=== PATIENT | female | born 1985 | race Two or more races ===

== ENCOUNTER 2024-05-21 18:33 | Inpatient (IN) | payer MEDICAID, SELFPAY ==
[2024-05-21 18:33] VITALS: BMI 32.8
[2024-05-21 18:55] VITALS: BP 130/77; PULSE 96; RESP 18; TEMP 37.4; O2SAT 97
--- NOTE | 2024-05-21 19:03 | PD.EDRME ---
Rapid Medical Screening Exam RME Arrival date/time: 05/21/24 18:33 38 year old female present to ED for c/o of abd pain for 4 days I have greeted and performed a focused initial assessment of this patient. A comprehensive ED assessment and evaluation of the patient, analysis of all test results, and completion of the medical decision making process will be conducted by additional ED providers. Chief Complaint: Abdominal Pain Vital signs: Vital Signs Temperature 99.4 F 05/21/24 18:55 Pulse Rate 96 05/21/24 18:55 Respiratory Rate 18 05/21/24 18:55 Blood Pressure 130/77 05/21/24 18:55 Pulse Oximetry (%) 97 05/21/24 18:55 Oxygen Delivery Method Room Air 05/21/24 18:55
[2024-05-21 19:25] LABS: Basophils % (Auto) 0 % (0-2.5); Eosinophils # (Auto) 0.1 Thou/mm3 (0.0-0.5); Eosinophils % (Auto) 1 % (0-10); Hematocrit 34.3 % (36.0-46.0); Hemoglobin 10.9 g/dL (12.0-16.0); Immature Granulocytes % (Auto) 1 % (0-0); Immature Granulocytes Auto 0.07 Thou/mm3 (0.00-0.00); Lymphocytes # (Auto) 1.7 Thou/mm3 (1.0-4.8); Lymphocytes % (Auto) 13 % (10-50); Mean Corpuscular HGB Conc 31.8 g/dl (31.0-37.0); Mean Corpuscular Hemoglobin 25.4 pg (25.0-35.0); Mean Corpuscular Volume 80 fL (80-100); Monocytes # (Auto) 0.7 Thou/mm3 (0.0-0.8); Monocytes % (Auto) 5 % (0-12); Neutrophils # (Auto) 10.4 Thou/mm3 (1.8-7.7); Neutrophils % (Auto) 80 % (37-80); Nucleated Red Blood Cell % 0 /100 WBC (0); Platelet Count 271 Thou/mm3 (140-440); RDW Standard Deviation 41.5 fL (36.4-46.3); Red Blood Count 4.29 Miln/mm3 (4.00-5.20)
[2024-05-21] MEDS: ONDANSETRON ODT 4 MG TABRAP PO (19:41)
[2024-05-21] MEDS: MG HYD/AL HYD/SIME (Maalox Reg) SUSP 30 ML UDC PO (19:42)
[2024-05-21 19:44] LABS: HCG,Qualitative Serum Negative
[2024-05-21 19:48] LABS: Alanine Aminotransferase 12 U/L (10-49); Albumin, Serum 4.7 gm/dL (3.5-5.0); Albumin/Globulin Ratio 1.3 (1.2-2.2); Alkaline Phosphatase 81 U/L (46-116); Anion Gap 9 (7-16); Aspartate Amino Transferase 11 U/L (0-34); BUN/Creatinine Ratio 13 Ratio (12-20); Bilirubin,Total 1.1 mg/dL (0.3-1.2); Blood Urea Nitrogen 10 mg/dL (9-23); Calcium 9.7 mg/dL (8.3-10.6); Calcium (Corrected) 9.7 mg/dL (8.5-10.1); Carbon Dioxide 26.3 mMol/L (20.0-31.0); Chloride 102 mMol/L (98-107); Creatinine (Component) 0.8 mg/dL (0.6-1.3); Estimated Creatinine Clearance 96.9 mL/min (>60); Globulin 3.7 gm/dL (2.3-3.5); Glucose 101 mg/dL (74-106); Lipase 24 U/L (12-53); Osmolality,Calculated 272 (275-295); Potassium 3.8 mMol/L (3.4-5.1); Sodium 137 mMol/L (136-145); Total Protein 8.4 gm/dL (5.7-8.2); eGFR > 60 See Note
[2024-05-21 20:29] LABS: Collection Type, Urine Voided
[2024-05-21 20:49] LABS: Bilirubin,Urine Negative (Negative); Blood,Urine 2+ (Negative); Clarity,Urine Turbid (Clear/Hazy); Color,Urine Yellow (Lt Yel-Yel); Glucose, Urine Negative (Negative); Ketones,Urine Trace (Negative); Leukocyte Esterase,Urine Positive (Negative); Nitrite,Urine Negative (Negative); Protein,Urine 1+ (Neg - Trace); RBC,Urine 7 /hpf (0-3); Squamous Epithelial Cell,Urine 14 /hpf (0-5); Urobilinogen,Urine Negative mg/dL (0.0-1.0); WBC,Urine 17 /hpf (0-5)
--- NOTE | 2024-05-21 21:21 | XR_ITS ---
Examination: CT abdomen and pelvis without contrast. Coronal 3-D reconstructions. Sagittal 2-D reconstructions. Date and time of exam:May 21, 2024 1008 p.m. Comparison October 09, 2014 INDICATION: Flank pain and abdominal pain and distention this week CTDI: vol (mGy): 10.3 DLP: (mGycm): 591 Technique: Axial images of the abdomen have been obtained, 3 mm slice thickness Intravenous contrast material has not been administered. Low dose protocols were performed. One or more of the following dose reduction techniques were used; automated exposure control, adjustment of the mA and/or KV according to patient size, use of iterative reconstruction technique. Findings: Diffuse fatty infiltration throughout the liver Absent gallbladder Spleen is not enlarged No pancreatic or adrenal mass. Mild bilateral renal parenchymal scar formation No renal or ureteral calculi, no hydronephrosis Aorta normal size Inflammatory change pericecal with tubular structure below and anterior to the cecum on axial image 176 Anteverted uterus No bladder mass IMPRESSION: No renal or ureteral calculi, no hydronephrosis Significant pericecal inflammation with poorly defined tubular structure below and anterior to the cecum, differential would include acute appendicitis with localized rupture Repeating this study with intravenous contrast would be helpful in diagnostic assessment
--- NOTE | 2024-05-21 23:11 | XR_ITS ---
Examination: CT abdomen with intravenous contrast CT pelvis with intravenous contrast 2-D coronal reconstructions 2-D sagittal reconstructions Date and time of exam:May 22, 2024 at [address] abdomen pelvis May 21, 2024 INDICATIONS: Right lower abdominal pain today CTDI: vol (mGy) 9.86 DLP: (mGycm) 551 Technique: Multiple axial sections of the abdomen and pelvis have been obtained. 64 slice high-resolution scanner used. 3 mm axial sections have been obtained, post intravenous injection 60 cc [id number] 2-D sagittal, coronal reconstructions obtained. Low dose protocols were performed. One or more of the following dose reduction techniques were used; automated exposure control, adjustment of the mA and/or KV according to patient size, use of iterative reconstruction technique. Findings: No focal liver or splenic lesions No hydronephrosis Aorta normal size Better defined perforated acute appendicitis with 22 mm abscess below the cecum No pelvic mass IMPRESSION: Perforated acute appendicitis with small periappendiceal abscess
[2024-05-21] MEDS: SODIUM CHLORIDE 0.9% 1000 ML 1,000 ML 999 ML IV (23:45)
[2024-05-21] MEDS: PIPER/TAZO 3.375 GM PREMIX 3.375 GM/50 ML BAG IV (23:47)
[2024-05-21] MEDS: ONDANSETRON INJ 2 MG/ML INJ 2 ML 4 MG IV (23:48)
[2024-05-21] MEDS: MORPHINE SULF INJ 10 MG/ML VIAL 4 MG IVP (23:48)
[2024-05-22] VITALS (10 sets, daily range): BP systolic 102–118; BP diastolic 58–71; PULSE 72–99; RESP 16–96; TEMP 36–37.3; O2SAT 92–98; BMI 35.1
--- NOTE | 2024-05-22 01:50 | PD.EDABDPN ---
ED Abdominal Pain RME/HPI General Chief Complaint: Abdominal Pain Stated complaint: ABD PAIN SINCE LAST WEEK, Time seen by provider: 05/22/24 01:50 Arrival date/time: 05/21/24 18:33 REVIEW OF SYSTEMS: See History of Present Illness - with the exception of those mentioned in the history of present illness, all other systems reviewed and reported as negative GENERAL: In general the patient is awake, interactive, in an emergency department gurney. HEAD/EYES/EARS/NOSE/THROAT: normo-cephalic, atraumatic, mucus membranes are moist, anicteric, palpebral conjunctiva is pink, trachea is midline. CARDIOVASCULAR: regular rate and regular rhythm, no murmurs, heart sounds are not distant, strong pulses in all four extremities that are equal and symmetric bilateral upper and lower extremities, normal capillary refill. CHEST/PULMONARY: normal chest rise and fall, good air movement, clear to auscultation bilaterally, normal inspiratory to expiratory ratios without evidence of respiratory distress. NECK: No midline/Paraspinal tenderness, no step off ROM/Strenght intact No Kernig and bruzinski sign. No trauma ABDOMEN: soft, generalized abdominal tenderness no masses appreciated BACK: normal range of motion without pain. NEUROLOGICAL: cranio-facial features are symmetric, moves all four extremities equally without obvious limitations or weakness. EXTREMITY: no tenderness to palpation over the long bones or large joints of the bilateral upper and lower extremities, no joint swelling, no joint erythema, no signs of trauma, no unilateral leg swelling and no peripheral edema. SKIN: warm, dry, well-perfused, no jaundice, no rash, no telangiectasias or petechia. PSYCH: calm, cooperative, no evidence of psychosis or agitation RME / HPI RME / HPI narrative: 05/21/24 18:33 38 year old female present to ED for c/o of abd pain for 4 days I have greeted and performed a focused initial assessment of this patient. A comprehensive ED assessment and evaluation of the patient, analysis of all test results, and completion of the medical decision making process will be conducted by additional ED providers. Related Data Previous Rx's ?Medication ?Instructions ?Recorded ibuprofen 800 mg tablet 800 mg PO TID PRN fever or pain 08/02/17 #30 tabs Allergies Allergy/AdvReac Type Severity Reaction Status Date / Time No Known Allergies Allergy Verified 05/21/24 18:35 Course Course Course Narrative: DISPOSITION: Emergency Department nursing documentation was reviewed including triage complaint, associated symptoms, administration of medications, response to therapy and vital signs. Given the history, physical exam, and review of laboratory and imaging studies the patient is determined to be unsafe for discharge and is being moved into the hospital for further diagnostic tests, treatments, stabilization, and monitored response to therapy. I communicated the history, physical exam, pertinent laboratory and imaging studies to the inpatient physician. The inpatient physician has access to electronic copies of all emergency department laboratory testing and imaging studies as well as medications ordered and administered. Quality Measures none Orders Category Date Time Status Admit to Inpatient Status Routine Admission 05/22/24 02:20 Active Patient Condition Routine Admission 05/22/24 02:20 Ordered Bedrest NOW Care 05/22/24 02:[address] Screening NOW Care 05/21/24 23:12 Active Flu & Pneumonia Vaccine Screen ONCE Care 05/22/24 02:22 Active IV [Insert IV] STAT Care 05/21/24 23:12 Active NPO NOW Care 05/22/24 02:21 Active Notify provider NEEDED Care 05/22/24 02:20 Active Sequential Compression Device QSHIFT Care 05/22/24 02:22 Active Strict Intake and Output Routine Care 05/22/24 02:21 Ordered Consult to General Surgery Stat Cons 05/22/24 01:52 Ordered Diet NPO (NOW) Diet 05/22/24 02:[address] abdomen pelvis w con Stat Exams 05/21/24 23:[address] abdomen pelvis wo con Stat Exams 05/21/24 21:21 Completed XR chest 2V Stat Exams 05/22/24 02:24 Ordered Blood Culture (Lab) Stat Lab 05/21/24 23:38 Received CBC AM DRAW Lab 05/22/24 05:00 Ordered CBC AM DRAW Lab 05/23/24 05:00 Ordered CBC AM DRAW Lab 05/24/24 05:00 Ordered CBC Stat Lab 05/21/24 19:12 Completed CMP [Comprehensive Metabolic Panel] Stat Lab 05/21/24 19:12 Completed Comprehensive Metabolic Panel AM DRAW Lab 05/22/24 05:00 Ordered Comprehensive Metabolic Panel AM DRAW Lab 05/23/24 05:00 Ordered Comprehensive Metabolic Panel AM DRAW Lab 05/24/24 05:00 Ordered HCG,Qualitative Serum Stat Lab 05/21/24 19:12 Completed Lactic Acid [Lactate (Lactic Acid)] Stat Lab 05/21/24 23:33 Completed Lipase Stat Lab 05/21/24 19:12 Completed Magnesium AM DRAW Lab 05/22/24 05:00 Ordered Magnesium AM DRAW Lab 05/23/24 05:00 Ordered Magnesium AM DRAW Lab 05/24/24 05:00 Ordered Partial Thromboplastin Time Stat Lab 05/22/24 02:23 Ordered Phosphorous AM DRAW Lab 05/23/24 05:00 Ordered Phosphorous AM DRAW Lab 05/24/24 05:00 Ordered Phosphorous AM DRAW Lab 05/25/24 05:00 Ordered Prothrombin Time with INR Stat Lab 05/22/24 02:23 Ordered Thyroid Stimulating Hormone AM DRAW Lab 05/22/24 05:00 Ordered UA [Urinalysis] Stat Lab 05/21/24 20:14 Completed Urine Culture Stat Lab 05/21/24 20:14 Received Acetaminophen Ivpb [Ofirmev Inj] Med 05/22/24 02:26 Ordered 1,000 mg in 100 ml IV Q6H Acetaminophen Ivpb [Ofirmev Inj] Med 05/22/24 02:22 Discontinued 1,000 mg in 100 ml IV Q6HR HYDROmorphone INJ [Dilaudid Inj] Med 05/22/24 01:56 Discontinued 1 mg IVP X1 ONE Morphine Inj Med 05/22/24 02:22 Ordered 2 mg IVP Q3H PRN Morphine Inj Med 05/21/24 23:17 Discontinued 4 mg IVP X1 ONE Ondansetron Inj [Zofran Inj] Med 05/22/24 02:22 Ordered 4 mg IV Q6H PRN Ondansetron Inj [Zofran Inj] Med 05/21/24 23:17 Discontinued 4 mg IV X1 ONE Ondansetron Odt [Zofran Odt] Med 05/21/24 19:02 Discontinued 4 mg PO X1 ONE Pantoprazole Inj [Protonix Inj] Med 05/22/24 09:00 Ordered 40 mg IVP QDAY Piper/Tazo 3.375 gm Premix [Zosyn] Med 05/21/24 23:13 Discontinued 3.375 gm in 50 ml IV X1 Piper/Tazo Inj [Zosyn Inj] 4.5 gm Med 05/22/24 06:00 Ordered Sodium Chloride 0.9% (Pop) [NS 0.9% mini bag] 100 ml IV Q6HR Ringers Lactated 1000 ml [Lactated Ringers] 1,000 ml Med 05/22/24 02:30 Ordered IV 75 mls/hr Sodium Chloride 0.9% 1000 ml [Ns] 1,000 ml Med 05/21/24 23:17 Discontinued IV 999 mls/hr Sodium Chloride 0.9% 1000 ml [Ns] 1,000 ml Med 05/22/24 01:57 Active IV 999 mls/hr mg Hyd/Al Hyd/Lester Susp [Maalox Susp] Med 05/21/24 19:02 Discontinued 30 ml PO X1 ONE Code Status Routine Oth 05/22/24 02:20 Ordered Oxygen Delivery PRN RT 05/22/24 02:21 Active Reevaluation(s) Reevaluation #1: pt is comfortable but request more pain medication. pt agreeable with treatment and plan Vital Signs Vital signs: Vital Signs Temperature 99.4 F 05/21/24 18:55 Pulse Rate 96 05/21/24 18:55 Respiratory Rate 18 05/21/24 18:55 Blood Pressure 130/77 05/21/24 18:55 Pulse Oximetry (%) 97 05/21/24 18:55 Oxygen Delivery Method Room Air 05/21/24 18:55 Abdominal Pain MDM Patient data External records reviewed:: [facility] previous records Clinical information provided by:: patient Social determinants that could affect healthcare access:: none Patient has the following chronic illnesses:: as stated in chart How is presenting disease/condition affected by chronic disease/condition?: uneffected by Evaluation data The following diagnostics were reviewed and interpreted by me:: lab results and radiology exam(s) Lab and/or radiology exams considered but not ordered:: n/a Interpretation Summary: CT wto:?IMPRESSION: No renal or ureteral calculi, no hydronephrosis Significant pericecal inflammation with poorly defined tubular structure below and anterior to the cecum, differential would include acute appendicitis with localized rupture Repeating this study with intravenous contrast would be helpful in diagnostic assessment CT with contrast per radiologist 140 rupture appendicitis cbc: 14k cmp no acute findings urine no infection lactic wnl Medications / Prescriptions Medications or Prescriptions considered but not ordered:: n/a Medication administrations:: Medication Administration History Sodium Chloride (Ns) 1,000 mls @ 999 mls/hr IV .Q1H1M ONE Stop: 05/22/24 02:57 Last Admin: 05/22/24 02:39 Dose: 999 mls/hr Documented By: HAYDEE Lactated Ringer's (Lactated Ringers) 1,000 mls @ 75 mls/hr IV .[id number] [facility] Stop: 06/21/24 02:29 Piperacillin Sod/Tazobactam (Sod 4.5 gm/ Sodium Chloride) 100 mls @ 200 mls/hr IV Q6HR [facility] Stop: 05/29/24 05:59 Acetaminophen (Ofirmev Inj) 1,000 mg in 100 mls @ 250 mls/hr IV Q6H PRN PRN Reason: fever 100.5 or mild pain 1-3 Morphine Sulfate (Morphine Sulf Inj 10 Mg/Ml Vial) 2 mg IVP Q3H PRN PRN Reason: Pain Scale 5-10 (Severe Stop: 05/27/24 02:21 Ondansetron HCl (Ondansetron Inj 2 Mg/Ml Inj 2 Ml) 4 mg IV Q6H PRN; Protocol PRN Reason: NAUSEA OR VOMITING Stop: 06/21/24 02:21 Pantoprazole Sodium (Pantoprazole Inj 40 Mg Vial) 40 mg IVP QDAY [facility] Stop: 06/21/24 08:59 Discontinued Medications Al Hydrox/Mg Hydrox/Simethicone (Mg Hyd/Al Hyd/Lester (Maalox Reg) Susp 30 Ml Udc) 30 ml PO X1 ONE Stop: 05/21/24 19:03 Last Admin: 05/21/24 19:42 Dose: 30 ml Documented By: DEAN Hydromorphone HCl (Hydromorphone Inj 2 Mg/Ml Vial) 1 mg IVP X1 ONE Stop: 05/22/24 01:57 Last Admin: 05/22/24 02:38 Dose: 1 mg Documented By: HAYDEE Piperacillin/Tazobactam/Dextrose (Zosyn) 3.375 gm in 50 mls @ 100 mls/hr IV X1 ONE Stop: 05/21/24 23:42 Last Admin: 05/21/24 23:47 Dose: 100 mls/hr Documented By: SUPA Sodium Chloride (Ns) 1,000 mls @ 999 mls/hr IV .Q1H1M ONE Stop: 05/22/24 00:17 Last Admin: 05/21/24 23:45 Dose: 999 mls/hr Documented By: DEAN Acetaminophen (Ofirmev Inj) 1,000 mg in 100 mls @ 250 mls/hr IV Q6HR PRN PRN Reason: fever 100.5 or mild pain 1-3 Stop: 05/22/24 18:23 Morphine Sulfate (Morphine Sulf Inj 10 Mg/Ml Vial) 4 mg IVP X1 ONE Stop: 05/21/24 23:18 Last Admin: 05/21/24 23:48 Dose: 4 mg Documented By: SUPA Ondansetron HCl (Ondansetron Odt 4 Mg Tabrap) 4 mg PO X1 ONE; Protocol Stop: 05/21/24 19:03 Last Admin: 05/21/24 19:41 Dose: 4 mg Documented By: DEAN Ondansetron HCl (Ondansetron Inj 2 Mg/Ml Inj 2 Ml) 4 mg IV X1 ONE; Protocol Stop: 05/21/24 23:18 Last Admin: 05/21/24 23:48 Dose: 4 mg Documented By: SUPA as stated above Consultations Consultation(s) initiated? (list below): No Consultation #1 (Physician, Specialty, Details): [address] Hughes, will come in for consult. no surgical intervention , admit to hospitalist 152 spoke with hospitalist will accept patient for admission Diagnosis Differential diagnosis abdominal pain: abdominal pain, acute appendicitis, calculus of kidney, constipation, diverticulitis, gastroenteritis, pancreatitis, small bowel obstruction and other (UTI gastritis ) Most likely diagnosis given after review of the tests above:: rupture appendicitis Admission Indicated Admission indicated?: not indicated Admission Request Was there a request for admission?: Yes Admission Attestation Admission request attestation: Discussed case with [] from Hospitalist service regarding admission. Discussed patients ED course, exam findings, labs, and radiology results. The Hospitalist [agrees,declines] to accept the patient for admission. Disposition Plan Disposition Plan: Admit Discharge Plan Plan Patient Disposition: Admit Acute Care w/in Hospital Prescriptions/Referrals Prescriptions/Med Rec: No Action ibuprofen 800 mg tablet 800 mg PO TID PRN (Reason: fever or pain) Qty: 30 0RF Referrals: Sundar Nielson MD [Primary Care Provider] - In 1 week Problem List Clinical Impression: Acute appendicitis with rupture Patient/Caregiver Discharge Instructions Print Language: Greenlandic Stand Alone Forms: [employer] Award Info., Patient Portal Info Letter
--- NOTE | 2024-05-22 01:52 | PRELIM_ITS ---
CT scan of the abdomen and pelvis with intravenous contrast (axial sections with sagittal and coronal reformats) May 22, 2024 0000 hours Clinical History: Abdomen pain, abnormal finding on CT without contrast Comparison: No prior study is available for comparison. Findings: The lung bases are clear. There is perforated acute appendicitis with small leno appendicular abscess, secondary inflammation of the terminal ileum and cecal base. The gallbladder is surgically absent. Hepatomegaly measuring 19.4 cm. The pancreas, spleen, kidneys and adrenals are unremarkable. There are bilateral renal cysts, the largest measuring 1 cm on the right. No evidence of bowel obstruction. There is no mesenteric or retroperitoneal adenopathy. The urinary bladder is unremarkable. There is no free fluid or free air. There is small right ovarian cyst The osseous structures are unremarkable. Impression: Perforated acute appendicitis with small leno appendicular abscess, secondary inflammation of the terminal ileum and cecal base. No definite free air. Other findings as described above. Discussion Details: Results verbally communicated to : Dr. Maddox at 01:45 AM 05/22/2024 Report Electronically Signed By: Tre Dexter 05/22/2024 1:52:03 AM [EST]
--- NOTE | 2024-05-22 02:24 | XR_ITS ---
Examination: PA lateral chest 2 views TECHNIQUE: Upright PA and lateral chest 2 views Exam date and time: May 22, 2024, 0243 hours INDICATIONS: Preop FINDINGS: Poor inspiratory effort Mild elevation right hemidiaphragm No lobar pneumonia The osseous structures are intact IMPRESSION: Poor inspiratory effort shows x-ray
--- NOTE | 2024-05-22 02:27 | PD.RESHP ---
Documentation for date of: 05/22/24 HPI History of Present Illness History of present illness: HPI: A 38-year-old female patient and known case of any medical condition presented to the ED due to abdominal pain that started 4 days ago. Patient reported that on Tuesday last week she started to feel acute abdominal pain located at the umbilical and the right side of the abdomen. Associated with nausea and ordering discoloration of her urine. Patient reported that she used multiple times ibuprofen to alleviate her symptoms. She mentioned that she contacted her provider in which he recommended to add Pepto-Bismol to the ibuprofen. Her pain subsided 1 day before presentation. However, today patient pain came back again however it was worse. She mentions that the pain is colicky in nature associated with warm sensation and chills. Last bowel movement was 1 day ago. Patient denied any nausea, diarrhea, constipation, urine tract symptoms. Patient denied any vaginal discharge. Home medications: Ibuprofen as needed for pain. ED course: At the ED patient was found to be septic with heart rate of 96, body temperature of 99.4, WBC was 12.5, hemoglobin 9.9, CMP was within normal limits, beta-hCG was negative, lactic acid was within normal limits. Urinalysis was significant for RBCs of 7, WBC 17, squamous cell of 14 most likely contaminated urine sample. CT scan of the abdomen and pelvis showed perforated acute appendicitis with small leno appendicular abscess, secondary inflammation of the terminal ileum and cecal base. No definite free air. Patient was given acetaminophen, Zosyn, Zofran, morphine. General surgeon Dr. Saini was consulted by the ED recommended to admit the patient for further management PMH: No previous past medical condition PSX: Cholecystectomy with no complications PFX: No similar condition among family member Social hx: Alcohol: Denied Tobacco: Denied Illicit drugs: Denied Allergies: No known allergy Review of Systems Review of Systems Systems Reviewed: All systems reviewed, normal except as documented Exam Vital Signs Temp Pulse Resp BP Pulse Ox O2 Del Method 99.4 F 96 18 130/77 97 Room Air 05/21/24 18:55 05/21/24 18:55 05/21/24 18:55 05/21/24 18:55 05/21/24 18:55 05/21/24 18:55 Narrative Exam GEN: AOx3, able to speak full sentences HEENT: NC/AC, PERRLA, oral mucosa moist, neck supple CVS: RRR, S1-S2 present, no murmurs appreciated RESP: CTAB GI: Guarding,non distended, generalized abdominal tender, NBS MSK: able to move all 4 limbs, no lower extremity edema SKIN: warm and dry PROFESSOR OF COUNSELING: CN II-XII and Sensation grossly intact. Results: Labs 05/22/24 03:04 05/22/24 03:04 Labs: Short CBC 05/21/24 Range/Units 19:12 WBC 13.0 H (3.6-11.0) Thou/mm3 Hgb 10.9 L (12.0-16.0) g/dL Hct 34.3 L (36.0-46.0) % Plt Count 271 (140-440) Thou/mm3 BMP 05/21/24 19:12 Sodium 137 Potassium 3.8 Chloride 102 Carbon Dioxide 26.3 BUN 10 Creatinine 0.8 Glucose 101 Calcium 9.7 Liver Function 05/21/24 Range/Units 19:12 Total Bilirubin 1.1 (0.3-1.2) mg/dL AST 11 (0-34) U/L ALT 12 (10-49) U/L Alkaline Phosphatase 81 (46-116) U/L Albumin 4.7 (3.5-5.0) gm/dL Urine 05/21/24 Range/Units 20:14 Urine Color Yellow (Lt Yel-Yel) Urine Clarity Turbid A (Clear/Hazy) Urine pH 6.0 (5.0-7.0) Ur Specific [place] 1.030 (1.001-1.035) Urine Protein 1+ A (Neg - Trace) Urine Glucose (UA) Negative (Negative) Quality Measures Quality Measures none Medications Home Medications and Allergies Allergies Allergy/AdvReac Type Severity Reaction Status Date / Time No Known Allergies Allergy Verified 05/21/24 18:35 Visit Medications Sodium Chloride (Ns) 1,000 mls @ 999 mls/hr IV .Q1H1M ONE Stop: 05/22/24 02:57 Lactated Ringer's (Lactated Ringers) 1,000 mls @ 75 mls/hr IV .[id number] YUSEF Stop: 06/21/24 02:29 Piperacillin Sod/Tazobactam (Sod 4.5 gm/ Sodium Chloride) 100 mls @ 200 mls/hr IV Q6HR YUSEF Stop: 05/29/24 05:59 Acetaminophen (Ofirmev Inj) 1,000 mg in 100 mls @ 250 mls/hr IV Q6H PRN PRN Reason: fever 100.5 or mild pain 1-3 Morphine Sulfate (Morphine Sulf Inj 10 Mg/Ml Vial) 2 mg IVP Q3H PRN PRN Reason: Pain Scale 5-10 (Severe Stop: 05/27/24 02:21 Ondansetron HCl (Ondansetron Inj 2 Mg/Ml Inj 2 Ml) 4 mg IV Q6H PRN; Protocol PRN Reason: NAUSEA OR VOMITING Stop: 06/21/24 02:21 Pantoprazole Sodium (Pantoprazole Inj 40 Mg Vial) 40 mg IVP QDAY [facility] Stop: 06/21/24 08:59 Discontinued Medications Al Hydrox/Mg Hydrox/Simethicone (Mg Hyd/Al Hyd/Lester (Maalox Reg) Susp 30 Ml Udc) 30 ml PO X1 ONE Stop: 05/21/24 19:03 Last Admin: 05/21/24 19:42 Dose: 30 ml Hydromorphone HCl (Hydromorphone Inj 2 Mg/Ml Vial) 1 mg IVP X1 ONE Stop: 05/22/24 01:57 Piperacillin/Tazobactam/Dextrose (Zosyn) 3.375 gm in 50 mls @ 100 mls/hr IV X1 ONE Stop: 05/21/24 23:42 Last Admin: 05/21/24 23:47 Dose: 100 mls/hr Sodium Chloride (Ns) 1,000 mls @ 999 mls/hr IV .Q1H1M ONE Stop: 05/22/24 00:17 Last Admin: 05/21/24 23:45 Dose: 999 mls/hr Acetaminophen (Ofirmev Inj) 1,000 mg in 100 mls @ 250 mls/hr IV Q6HR PRN PRN Reason: fever 100.5 or mild pain 1-3 Stop: 05/22/24 18:23 Morphine Sulfate (Morphine Sulf Inj 10 Mg/Ml Vial) 4 mg IVP X1 ONE Stop: 05/21/24 23:18 Last Admin: 05/21/24 23:48 Dose: 4 mg Ondansetron HCl (Ondansetron Odt 4 Mg Tabrap) 4 mg PO X1 ONE; Protocol Stop: 05/21/24 19:03 Last Admin: 05/21/24 19:41 Dose: 4 mg Ondansetron HCl (Ondansetron Inj 2 Mg/Ml Inj 2 Ml) 4 mg IV X1 ONE; Protocol Stop: 05/21/24 23:18 Last Admin: 05/21/24 23:48 Dose: 4 mg Assessment & Plan Plan Summary:A 38-year-old female patient and known case of any medical condition presented to the ED due to abdominal pain that started 4 days ago. Patient reported that on Tuesday last week she started to feel acute abdominal pain located at the umbilical and the right side of the abdomen. Patient was admitted for management of sepsis secondary to perforated appendicitis #Sepsis secondary to perforated appendicitis #Perforated appendicitis At the ED patient was found to be septic with heart rate of 96, body temperature of 99.4, WBC was 12.5, hemoglobin 9.9, CMP was within normal limits, beta-hCG was negative, lactic acid was within normal limits. Urinalysis was significant for RBCs of 7, WBC 17, squamous cell of 14 most likely contaminated urine sample. CT scan of the abdomen and pelvis showed perforated acute appendicitis with small leno appendicular abscess, secondary inflammation of the terminal ileum and cecal base. No definite free air. Patient was given acetaminophen, Zosyn, Zofran, morphine. General surgeon Dr. Saini was consulted by the ED recommended to admit the patient for further management Plan - Admit patient to Med-surg - Start the patient on zosyn 4.5mg QID - Tylenol IV for fever or mild pain - Keep patient NPO - Start IV RL 75mL/H - General surgon Dr Gutierrez was consulted by ED physcitrista Recgenesis appreciated - Zofran PRN for N/V - Protonix IV qday - F/U on the urine and blood C/S Hospital Maintenance: FEN: NPO DVT ppx: SCD GI ppx:Protonix IV lines:PIV Roy:None Code status:Full Code Dispo:Med-Surg - Patient's plan and care discussed with my attending, Dr. Iker Segura MD Internal Medicine PGY-2 Attending Provider Attestation/Addendum I attest that I was physically present for the evaluation, physical examination, lab and imaging review of the patient with the residents. I discussed the case with the residents and agree with the findings and plans of care as documented above. Patient is a 38 years old female without known past medical history who presented to the ED with complaint of abdominal pain which started 4 days back. Patient initially helped abdominal pain around her umbilicus which moved to the right side of abdome.n patient also has nausea associated with the pain. Patient has been taking ibuprofen with only partial relief. In the ED, she was found to have heart rate of 96, WBC was 12.5, hemoglobin 9.9. Urinalysis showed 17 WBCs but patient denied any urinary symptoms. CT of abdomen/pelvis was done, which shows perforated acute appendicitis with small periappendiceal abscess. General surgery was contacted by ED, who recommended admission for further management. We will admit the patient for management of sepsis secondary to perforated appendicitis. We will start her on broad-spectrum antibiotics with IV Zosyn. Will also start analgesics, antiemetics and IV hydration. We will keep patient n.p.o. for now, general surgery will be following patient with us. Cultures obtained. Mary Dong MD
[2024-05-22] MEDS: HYDROmorphone INJ 2 MG/ML VIAL 1 MG IVP (02:38)
[2024-05-22] MEDS: SODIUM CHLORIDE 0.9% 1000 ML 1,000 ML 999 ML IV (02:39)
[2024-05-22 03:30] LABS: Basophils % (Auto) 0 % (0-2.5); Eosinophils # (Auto) 0.1 Thou/mm3 (0.0-0.5); Eosinophils % (Auto) 0 % (0-10); Hematocrit 31.3 % (36.0-46.0); Hemoglobin 9.9 g/dL (12.0-16.0); Immature Granulocytes % (Auto) 0 % (0-0); Immature Granulocytes Auto 0.04 Thou/mm3 (0.00-0.00); Lymphocytes # (Auto) 1.8 Thou/mm3 (1.0-4.8); Lymphocytes % (Auto) 14 % (10-50); Mean Corpuscular HGB Conc 31.6 g/dl (31.0-37.0); Mean Corpuscular Hemoglobin 25.5 pg (25.0-35.0); Mean Corpuscular Volume 81 fL (80-100); Monocytes # (Auto) 0.7 Thou/mm3 (0.0-0.8); Monocytes % (Auto) 6 % (0-12); Neutrophils # (Auto) 9.9 Thou/mm3 (1.8-7.7); Neutrophils % (Auto) 79 % (37-80); Nucleated Red Blood Cell % 0 /100 WBC (0); Platelet Count 261 Thou/mm3 (140-440); RDW Standard Deviation 42.3 fL (36.4-46.3); Red Blood Count 3.88 Miln/mm3 (4.00-5.20); White Blood Count 12.5 Thou/mm3 (3.6-11.0)
[2024-05-22 03:48] LABS: INR 1.2 (0.9-1.3); Partial Thromboplastin Time 29.6 Seconds (22.0-36.0); Prothrombin Time 12.5 Seconds (9.0-12.2)
[2024-05-22 04:12] LABS: Alanine Aminotransferase 9 U/L (10-49); Albumin/Globulin Ratio 1.3 (1.2-2.2); Alkaline Phosphatase 73 U/L (46-116); Anion Gap 6 (7-16); Aspartate Amino Transferase < 8 U/L (0-34); BUN/Creatinine Ratio 9 Ratio (12-20); Bilirubin,Total 1.2 mg/dL (0.3-1.2); Blood Urea Nitrogen 7 mg/dL (9-23); Calcium 8.6 mg/dL (8.3-10.6); Calcium (Corrected) 8.6 mg/dL (8.5-10.1); Carbon Dioxide 25.1 mMol/L (20.0-31.0); Chloride 106 mMol/L (98-107); Creatinine (Component) 0.8 mg/dL (0.6-1.3); Estimated Creatinine Clearance 96.9 mL/min (>60); Globulin 3.2 gm/dL (2.3-3.5); Glucose 119 mg/dL (74-106); Magnesium 1.9 mg/dL (1.6-2.6); Osmolality,Calculated 272 (275-295); Potassium 3.9 mMol/L (3.4-5.1); Sodium 137 mMol/L (136-145); Thyroid Stimulating Hormone 6.72 uIU/mL (0.55-4.78); Total Protein 7.2 gm/dL (5.7-8.2); eGFR > 60 See Note
[2024-05-22] MEDS: RINGERS LACTATED 1000 ML 1,000 ML 75 ML IV ×2 (05:06→21:38)
[2024-05-22] MEDS: ONDANSETRON INJ 2 MG/ML INJ 2 ML 4 MG IV ×4 (05:37→23:59)
[2024-05-22] MEDS: MORPHINE SULF INJ 10 MG/ML VIAL 2 MG IVP ×4 (05:38→19:56)
[2024-05-22] MEDS: PIPER/TAZO INJ 4.5 GM in SODIUM CHLORIDE 0.9% (POP) 100 ML IV ×4 (05:38→23:38)
[2024-05-22] MEDS: ACETAMINOPHEN IVPB 1,000 MG/100 ML VIAL 250 MG IV (07:47)
[2024-05-22] MEDS: PANTOPRAZOLE INJ 40 MG VIAL IVP (08:49)
[2024-05-22 09:08] LABS: Free T4 (Free Thyroxine) 1.09 ng/dL (0.89-1.76)
[2024-05-22] MEDS: KETOROLAC INJ 30 MG/ML VIAL IVP (10:54)
--- NOTE | 2024-05-22 13:48 | PD.SURCONS ---
HPI Consult details History of present illness: 38F presenting with abdominal pain. Patient reports pain began 3 days before presentation, at the umbilicus and then migrated to the right lower quadrant, associated with nausea and dysuria. Patient took zcfr-efp-opbjkne medications and felt that the pain improved, however the day before presentation it returned and persisted prompting her to seek care in ER. Workup is consistent with perforated appendicitis and patient has remained afebrile, today WBC 12.5 from 13 and she reports pain has somewhat improved although not fully subsided PMH: Denies PSH: Cholecystectomy Meds: Ibuprofen as needed Allergies: NKDA Family history: No known malignancies Review of Systems Review of Systems ROS Unobtainable: All systems reviewed & no additional complaints except as documented Meds Home Medications and Allergies Allergies Allergy/AdvReac Type Severity Reaction Status Date / Time No Known Allergies Allergy Verified 05/21/24 18:35 Exam Vital Signs Temp Pulse Resp BP Pulse Ox O2 Del Method 96.8 F 86 17 107/62 98 Room Air 05/22/24 12:00 05/22/24 12:05/22/24 12:00 05/22/24 12:00 05/22/24 12:00 05/22/24 12:00 Constitutional Constitutional: no acute distress Routine Respiratory Exam Respiratory: Present no resp distress Routine Abdominal Exam Abdominal: Present soft; Absent tenderness (negative Rovsing's sign), distended, rebound, guarding or firm Results Results: Laboratory Laboratory results: results reviewed Results: Imaging CT scan - abdomen: report reviewed and image reviewed Assessment & Plan Plan 38F otherwise healthy presenting with signs and symptoms of perforated appendicitis. As patient is clinically well with no fever, mild leukocytosis and minimal tenderness, I explained that medical management is preferable in her case as the appendix is likely the too walled off to safely remove, and that surgery would confer a risk of injury to nearby structures including the colon and small intestine. All questions were answered and patient is agreeable to this plan CLD Continue antibiotics Pain control as needed Encourage ambulation Will follow-up
--- NOTE | 2024-05-22 14:40 | PC.SS ---
Patient Ana Miller is a 38 year old female admitted for Abdominal Pain. SS met with patient at bedside to review demographic information. Patient reports she lives at home with family, at bedside was her sister, Fifi Abdi who is surrogate decision maker, [phone]. Patient does not utilize any source of DME to assist with ambulation. Patient is able to complete all ADL's independently. [facility] of [facility] PCP is Sundar Nielson. At time of discharge patient will return home, Family will provide transportation. . Next of Kin: Sister, Fifi Abdi Discharge plan: Home
--- NOTE | 2024-05-22 16:17 | PD.RESPRO ---
Documentation for date of: 05/22/24 Subjective Subjective Interval history: Patient is seen and examined at bedside. No acute overnight events. Still complaining of pain in the right lower quadrant and hypogastric region Vitals are stable. On physical examination, tenderness noted in right lower quadrant and hypogastric region Labs showed mild leukocytosis with WBC 12.5, Hb 9.9, TSH 6.72 Dr. Saini was consulted for the possibility of surgery but recommended to start patient on clear liquid diet for now Will continue antibiotics and monitor patient's clinical condition Exam Vital Signs Temp Pulse Resp BP Pulse Ox O2 Del Method 96.8 F 72 18 107/62 98 Room Air 05/22/24 12:00 05/22/24 15:58 05/22/24 15:58 05/22/24 12:00 05/22/24 12:00 05/22/24 12:00 Narrative Exam General: Awake. Resting comfortably on the bed HEENT: Normocephalic, atraumatic, mucous membranes moist. Heart: Regular rate and rhythm, no murmurs. Lungs: Clear to auscultation with no wheezing or crackles. Abdomen: Soft, nondistended, moderate tenderness in the right lower quadrant and hypogastric region, decreased bowel sounds. ?No guarding or rebound tenderness. Neurologic: Alert and oriented x3, no gross neurological deficit, and patient able to move all 4 extremities. Extremities: No edema. Skin: No rash or ecchymoses. Objective Labs 05/23/24 04:37 05/23/24 04:37 Labs: Laboratory Results - last 24 hr 05/21/24 05/21/24 05/21/24 19:12 20:14 23:33 WBC 13.0 H RBC 4.29 Hgb 10.9 L Hct 34.3 L MCV 80 MCH 25.4 MCHC 31.8 RDW Std Deviation 41.5 Plt Count 271 Neut % (Auto) 80 Lymph % (Auto) 13 [place] % (Auto) 5 Eos % (Auto) 1 Baso % (Auto) 0 Neut # (Auto) 10.4 H Lymph # (Auto) 1.7 [place] # (Auto) 0.7 Eos # (Auto) 0.1 Baso # (Auto) 0.0 Immature Gran # (Auto) 0.07 H Absolute Nucleated RBC 0.00 Immature Gran % 1 H Nucleated RBC % 0 PT INR APTT Sodium 137 Potassium 3.8 Chloride 102 Carbon Dioxide 26.3 Anion Gap 9 BUN 10 Creatinine 0.8 Estim Creat Clear Calc 96.9 eGFR > 60 BUN/Creatinine Ratio 13 Glucose 101 Calculated Osmolality 272 L Lactic Acid 1.0 Calcium 9.7 Corrected Calcium 9.7 Magnesium Total Bilirubin 1.1 AST 11 ALT 12 Alkaline Phosphatase 81 Total Protein 8.4 H Albumin 4.7 Globulin 3.7 H Albumin/Globulin Ratio 1.3 Lipase 24 TSH Free T4 HCG, Qual Negative Ur Collection Type Voided Urine Color Yellow Urine Clarity Turbid A Urine pH 6.0 Ur Specific [place] 1.030 Urine Protein 1+ A Urine Glucose (UA) Negative Urine Ketones Trace Urine Blood 2+ A Urine Nitrite Negative Urine Bilirubin Negative Urine Urobilinogen (Auto) Negative Ur Leukocyte Esterase Positive Urine RBC 7 H Urine WBC 17 H Ur Squamous Epith Cells 14 H Urine Bacteria None 05/22/24 03:04 WBC 12.5 H RBC 3.88 L Hgb 9.9 L Hct 31.3 L MCV 81 MCH 25.5 MCHC 31.6 RDW Std Deviation 42.3 Plt Count 261 Neut % (Auto) 79 Lymph % (Auto) 14 [place] % (Auto) 6 Eos % (Auto) 0 Baso % (Auto) 0 Neut # (Auto) 9.9 H Lymph # (Auto) 1.8 [place] # (Auto) 0.7 Eos # (Auto) 0.1 Baso # (Auto) 0.0 Immature Gran # (Auto) 0.04 H Absolute Nucleated RBC 0.00 Immature Gran % 0 Nucleated RBC % 0 PT 12.5 H INR 1.2 APTT 29.6 Sodium 137 Potassium 3.9 Chloride 106 Carbon Dioxide 25.1 Anion Gap 6 L BUN 7 L Creatinine 0.8 Estim Creat Clear Calc 96.9 eGFR > 60 BUN/Creatinine Ratio 9 L Glucose 119 H Calculated Osmolality 272 L Lactic Acid Calcium 8.6 Corrected Calcium 8.6 Magnesium 1.9 Total Bilirubin 1.2 AST < 8 ALT 9 L Alkaline Phosphatase 73 Total Protein 7.2 Albumin 4.0 D Globulin 3.2 Albumin/Globulin Ratio 1.3 Lipase TSH 6.72 H Free T4 1.09 HCG, Qual Ur Collection Type Urine Color Urine Clarity Urine pH Ur Specific [place] Urine Protein Urine Glucose (UA) Urine Ketones Urine Blood Urine Nitrite Urine Bilirubin Urine Urobilinogen (Auto) Ur Leukocyte Esterase Urine RBC Urine WBC Ur Squamous Epith Cells Urine Bacteria Quality Measures Quality Measures none Assessment & Plan Assessment Current Active Medications: Generic Name Dose Route Start Last Admin Trade Name Freq PRN Reason Stop Dose Admin Lactated Ringer's 1,000 mls @ 75 mls/hr 05/22/24 02:30 05/22/24 05:06 Lactated Ringers IV 06/21/24 02:29 75 mls/hr .[id number] YUSEF Administration Piperacillin Sod/Tazobactam 100 mls @ 200 mls/hr 05/22/24 06:00 05/22/24 11:52 Sod 4.5 gm/ Sodium Chloride IV 05/29/24 05:59 200 mls/hr Q6HR YUSEF Administration Acetaminophen 1,000 mg in 100 mls @ 250 mls/hr 05/22/24 02:26 05/22/24 07:47 Ofirmev Inj IV 250 mls/hr Q6H PRN Administration fever 100.5 or mild pain 1-3 Ketorolac Tromethamine 30 mg 05/22/24 10:29 05/22/24 10:54 Ketorolac Inj 30 Mg/Ml Vial IVP 05/27/24 10:26 30 mg Q6HR PRN Administration PAIN 4-6 Lidocaine 1 patch 05/22/24 13:47 Lidocaine 5% 1 Patch TOP 06/21/24 13:46 UD PRN PAIN Protocol Morphine Sulfate 2 mg 05/22/24 10:30 05/22/24 11:52 Morphine Sulf Inj 10 Mg/Ml Vial IVP 05/27/24 02:21 2 mg Q3H PRN Administration Pain Scale 7-10 Ondansetron HCl 4 mg 05/22/24 02:22 05/22/24 11:22 Ondansetron Inj 2 Mg/Ml Inj 2 Ml IV 06/21/24 02:21 4 mg Q6H PRN Administration NAUSEA OR VOMITING Protocol Pantoprazole Sodium 40 mg 05/22/24 09:00 05/22/24 08:49 Pantoprazole Inj 40 Mg Vial IVP 06/21/24 08:59 40 mg QDAY YUSEF Administration Plan A 38-year-old female patient and known case of any medical condition presented to the ED due to abdominal pain that started 4 days ago. Patient reported that on Tuesday last week she started to feel acute abdominal pain located at the umbilical and the right side of the abdomen. Patient was admitted for management of sepsis secondary to perforated appendicitis #Perforated appendicitis Presented to the hospital with complaint of pain in the right lower quadrant since 3 days, no associated fever, nausea, vomitings Vitals are stable at the time of admission. Labs showed mild leukocytosis with WBC 12.5 CT scan of the abdomen and pelvis showed perforated acute appendicitis with small leno appendicular abscess, secondary inflammation of the terminal ileum and cecal base. Patient was given acetaminophen, Zosyn, Zofran, morphine in the ED. General surgeon Dr. Saini was consulted by the ED recommended to admit the patient for further management Plan - Admit patient to Med-surg - Start the patient on zosyn 4.5mg QID - Tylenol IV for fever or mild pain - Started on clear liquid diet - General surgon Dr Gutierrez was consulted and recommended conservative management for now - Zofran PRN for N/V - Protonix IV qday Hospital Maintenance: FEN: Clear liquid diet DVT ppx: SCD GI ppx:Protonix IV lines:PIV Roy:None Code status:Full Code Dispo:Med-Surg Patient plan of care was discussed with the attending physician, Dr. Ma and senior resident Dr. Kathy Gore, PGY1 Attending Provider Attestation/Addendum I reviewed labs, imaging, EKG, home medications and prior available records. Face to face evaluation was performed by me. I have personally examined the patient and discussed assessment and plan with the IM team. I reviewed the resident note and agree with the plan with exceptions as below. Acute appendicitis, perforated Leukocytosis Right lower quadrant abdominal pain Intractable nausea and vomiting Symptomatic management with IV opiates and IV Zofran as needed Trend WBC: Downtrending Consulted general surgery: Recommended no surgical intervention at this moment. Start clear liquid diet
[2024-05-23] VITALS (9 sets, daily range): BP systolic 106–124; BP diastolic 62–83; PULSE 60–84; RESP 16–95; TEMP 36.1–36.5; O2SAT 92–99
[2024-05-23] MEDS: MORPHINE SULF INJ 10 MG/ML VIAL 2 MG IVP ×3 (04:34→08:36)
[2024-05-23 05:24] LABS: Basophils % (Auto) 0 % (0-2.5); Eosinophils # (Auto) 0.2 Thou/mm3 (0.0-0.5); Eosinophils % (Auto) 2 % (0-10); Hematocrit 31.3 % (36.0-46.0); Hemoglobin 9.8 g/dL (12.0-16.0); Immature Granulocytes % (Auto) 0 % (0-0); Immature Granulocytes Auto 0.01 Thou/mm3 (0.00-0.00); Lymphocytes # (Auto) 1.6 Thou/mm3 (1.0-4.8); Lymphocytes % (Auto) 20 % (10-50); Mean Corpuscular HGB Conc 31.3 g/dl (31.0-37.0); Mean Corpuscular Hemoglobin 25.2 pg (25.0-35.0); Mean Corpuscular Volume 81 fL (80-100); Monocytes # (Auto) 0.4 Thou/mm3 (0.0-0.8); Monocytes % (Auto) 5 % (0-12); Neutrophils % (Auto) 73 % (37-80); Nucleated Red Blood Cell % 0 /100 WBC (0); Platelet Count 262 Thou/mm3 (140-440); RDW Standard Deviation 41.5 fL (36.4-46.3); Red Blood Count 3.89 Miln/mm3 (4.00-5.20); White Blood Count 8.1 Thou/mm3 (3.6-11.0)
[2024-05-23] MEDS: PIPER/TAZO INJ 4.5 GM in SODIUM CHLORIDE 0.9% (POP) 100 ML IV ×3 (05:56→17:04)
[2024-05-23 05:57] LABS: Alanine Aminotransferase 7 U/L (10-49); Albumin, Serum 3.6 gm/dL (3.5-5.0); Albumin/Globulin Ratio 1.2 (1.2-2.2); Alkaline Phosphatase 67 U/L (46-116); Anion Gap 6 (7-16); Aspartate Amino Transferase < 10 U/L (0-34); BUN/Creatinine Ratio 10 Ratio (12-20); Blood Urea Nitrogen 8 mg/dL (9-23); Calcium 8.2 mg/dL (8.3-10.6); Calcium (Corrected) 8.5 mg/dL (8.5-10.1); Carbon Dioxide 26.8 mMol/L (20.0-31.0); Chloride 105 mMol/L (98-107); Creatinine (Component) 0.8 mg/dL (0.6-1.3); Estimated Creatinine Clearance 100.5 mL/min (>60); Globulin 2.9 gm/dL (2.3-3.5); Glucose 87 mg/dL (74-106); Osmolality,Calculated 272 (275-295); Phosphorous 2.2 mg/dL (2.4-5.1); Potassium 3.5 mMol/L (3.4-5.1); Sodium 138 mMol/L (136-145); Total Protein 6.5 gm/dL (5.7-8.2); eGFR > 60 See Note
[2024-05-23] MEDS: ONDANSETRON INJ 2 MG/ML INJ 2 ML 4 MG IV ×2 (08:35→19:12)
[2024-05-23] MEDS: PANTOPRAZOLE INJ 40 MG VIAL IVP (08:36)
[2024-05-23] MEDS: NAPH,KPH MBDB 1 PACKET (1.5 GM) 2 PACKET PO (08:53)
--- NOTE | 2024-05-23 09:00 | PC.SS ---
SS follow up note; Surgery is on board, on IV ABX. Advancing Diet. Once patient is medically cleared, she will return back home.
--- NOTE | 2024-05-23 09:25 | PD.SURPROG ---
Documentation for date of: 05/23/24 Subjective Subjective Brief History: 38F presenting with abdominal pain. Patient reports pain began 3 days before presentation, at the umbilicus and then migrated to the right lower quadrant, associated with nausea and dysuria. Patient took nvpq-cgl-jfrgvad medications and felt that the pain improved, however the day before presentation it returned and persisted prompting her to seek care in ER. Workup is consistent with perforated appendicitis and patient has remained afebrile, today WBC 12.5 from 13 and she reports pain has somewhat improved although not fully subsided PMH: Denies PSH: Cholecystectomy Meds: Ibuprofen as needed Allergies: NKDA Family history: No known malignancies Narrative: Stable abdominal pain, no nausea, remaining afebrile with normal WBC, tolerating clear liquids. Patient has not yet had a BM but states that she does not usually have BMs daily Exam Vital Signs Temp Pulse Resp BP Pulse Ox O2 Del Method 97.0 F 77 18 124/71 98 Room Air 05/23/24 04:00 05/23/24 04:00 05/23/24 04:00 05/23/24 04:00 05/23/24 04:00 05/23/24 04:00 Constitutional Constitutional: no acute distress Routine Respiratory Exam Respiratory: Present no resp distress Routine Abdominal Exam Abdominal: Present soft and tenderness (Mild right lower quadrant tenderness); Absent distended, rebound or guarding Results Results: Laboratory Laboratory results: results reviewed Results: Imaging CT scan - abdomen: report reviewed and image reviewed Assessment & Plan Plan 38F otherwise healthy presenting with signs and symptoms of perforated appendicitis. As patient is clinically well with no fever, mild leukocytosis and minimal tenderness, I explained that medical management is preferable in her case as the appendix is likely the too walled off to safely remove, and that surgery would confer a risk of injury to nearby structures including the colon and small intestine. All questions were answered and patient is agreeable to this plan Advance to regular/bland diet Transition to PO pain meds
[2024-05-23] MEDS: oxyCODONE/APAP 5/325 TABLET 1 TAB PO (11:58)
--- NOTE | 2024-05-23 14:29 | ESPR_ITS ---
<Statement entered by Pato Herrera MD - 05/24/24 09:00> Senior Resident Attestation: I supervised/discussed management plan with internet sales director physician Dr. Gore, and was involved in the care of this patient. I personally saw and examined the patient and discussed the assessment and plan with the entire medicine team, including my attending. I agree with the assessment and plan as documented. Patient's care was discussed with attending physician, Dr. Ma. Pato Herrera MD PGY-2. Documentation for date of: 05/23/24 Subjective Subjective Interval history: Patient is seen and examined at bedside. Overnight, patient received multiple doses of morphine for pain and patient reported that morphine is not helping her much and needed a change of medication. Stated that she is still having abdominal pain but decreased from the time of admission Vitals are stable. Patient is tolerating liquid diet well Labs showed WBC 8.1, Hb 9.8, BUN 8, creatinine 0.8 Dr. Hughes saw the patient today and recommended to start her on solid diet, continue antibiotics, changed to morphine to oxycodone If patient is able to tolerate solid diet, planning to discharge tomorrow on oral antibiotics Exam Vital Signs Temp Pulse Resp BP Pulse Ox O2 Del Method 97.2 F 80 16 108/66 92 L Room Air 05/23/24 11:00 05/23/24 11:00 05/23/24 11:00 05/23/24 11:00 05/23/24 11:00 05/23/24 11:00 Narrative Exam General: Awake. Resting comfortably on the bed HEENT: Normocephalic, atraumatic, mucous membranes moist. Heart: Regular rate and rhythm, no murmurs. Lungs: Clear to auscultation with no wheezing or crackles. Abdomen: Soft, nondistended, moderate tenderness in the right lower quadrant and hypogastric region. No guarding or rebound tenderness. Neurologic: Alert and oriented x3, no gross neurological deficit, and patient able to move all 4 extremities. Extremities: No edema. Skin: No rash or ecchymoses. Objective Labs 05/23/24 04:37 05/23/24 04:37 Labs: Laboratory Results - last 24 hr 05/23/24 04:37 WBC 8.1 RBC 3.89 L Hgb 9.8 L Hct 31.3 L MCV 81 MCH 25.2 MCHC 31.3 RDW Std Deviation 41.5 Plt Count 262 Neut % (Auto) 73 Lymph % (Auto) 20 [place] % (Auto) 5 Eos % (Auto) 2 Baso % (Auto) 0 Neut # (Auto) 6.0 Lymph # (Auto) 1.6 [place] # (Auto) 0.4 Eos # (Auto) 0.2 Baso # (Auto) 0.0 Immature Gran # (Auto) 0.01 H Absolute Nucleated RBC 0.00 Immature Gran % 0 Nucleated RBC % 0 Sodium 138 Potassium 3.5 Chloride 105 Carbon Dioxide 26.8 Anion Gap 6 L BUN 8 L Creatinine 0.8 Estim Creat Clear Calc 100.5 eGFR > 60 BUN/Creatinine Ratio 10 L Glucose 87 Calculated Osmolality 272 L Calcium 8.2 L Corrected Calcium 8.5 Phosphorus 2.2 L Magnesium 2.0 Total Bilirubin 1.0 AST < 10 ALT 7 L Alkaline Phosphatase 67 Total Protein 6.5 Albumin 3.6 Globulin 2.9 Albumin/Globulin Ratio 1.2 Quality Measures Quality Measures none Assessment & Plan Assessment Current Active Medications: Generic Name Dose Route Start Last Admin Trade Name Freq PRN Reason Stop Dose Admin Acetaminophen 650 mg 05/23/24 09:24 Acetaminophen 325 Mg Tablet PO 06/22/24 09:23 Q6HR PRN PAIN SCALE 1-3 (mild Docusate Sodium 100 mg 05/23/24 09:27 Docusate Sod 100 Mg Capsule PO 06/22/24 09:26 QDAY PRN CONSTIPATION Protocol Piperacillin Sod/Tazobactam 100 mls @ 200 mls/hr 05/22/24 06:00 05/23/24 11:57 Sod 4.5 gm/ Sodium Chloride IV 05/29/24 05:59 200 mls/hr Q6HR YUSEF Administration Lidocaine 1 patch 05/22/24 13:47 Lidocaine 5% 1 Patch TOP 06/21/24 13:46 UD PRN PAIN Protocol Ondansetron HCl 4 mg 05/22/24 02:22 05/23/24 08:35 Ondansetron Inj 2 Mg/Ml Inj 2 Ml IV 06/21/24 02:21 4 mg Q6H PRN Administration NAUSEA OR VOMITING Protocol Oxycodone/Acetaminophen 1 tab 05/23/24 09:24 05/23/24 11:58 Oxycodone/Apap 5/325 Tablet PO 05/28/24 09:23 1 tab Q4H PRN Administration PAIN SCALE 7-10 (Severe Pantoprazole Sodium 40 mg 05/22/24 09:00 05/23/24 08:36 Pantoprazole Inj 40 Mg Vial IVP 06/21/24 08:59 40 mg QDAY YUSEF Administration Plan A 38-year-old female patient and known case of any medical condition presented to the ED due to abdominal pain that started 4 days ago. Patient reported that on Tuesday last week she started to feel acute abdominal pain located at the umbilical and the right side of the abdomen. Patient was admitted for management of sepsis secondary to perforated appendicitis #Perforated appendicitis Presented to the hospital with complaint of pain in the right lower quadrant since 3 days, no associated fever, nausea, vomitings Vitals are stable at the time of admission. Labs showed mild leukocytosis with WBC 12.5 CT scan of the abdomen and pelvis showed perforated acute appendicitis with small leno appendicular abscess, secondary inflammation of the terminal ileum and cecal base. Patient was given acetaminophen, Zosyn, Zofran, morphine in the ED. General surgeon Dr. Saini was consulted by the ED recommended to admit the patient for further management Plan - Admit patient to Med-surg - Start the patient on zosyn 4.5mg QID - Tylenol IV for fever or mild pain and oxycodone as needed - Started on solid regular diet - General surgon Dr Gutierrez was consulted and recommended conservative management for now - Zofran PRN for N/V - Protonix IV qday Hospital Maintenance: FEN: Regular diet DVT ppx: SCD GI ppx:Protonix IV lines:PIV Roy:None Code status:Full Code Dispo:Med-Surg Patient plan of care was discussed with the attending physician, Dr. Ma and senior resident Dr. Kathy Gore, PGY1 Attending Provider Attestation/Addendum I reviewed labs, imaging, EKG, home medications and prior available records. Face to face evaluation was performed by me. I have personally examined the patient and discussed assessment and plan with the IM team. I reviewed the resident note and agree with the plan with exceptions as below. Acute appendicitis, perforated Leukocytosis Right lower quadrant abdominal pain Intractable nausea and vomiting Symptomatic management of pain and nausea/vomiting. Transition to oral opiates Trend WBC: Downtrending Consulted general surgery: Recommended no surgical intervention at this moment. Started clear liquid diet. Advanced the diet to solid food Discharge on 05/24 in case of further improvement of symptoms and tolerance of advanced diet
[2024-05-23] MEDS: LIDOCAINE 5% 1 PATCH TOP (15:09)
[2024-05-23] MEDS: oxyCODONE HCL 5 MG IR TAB 10 MG PO (16:00)
--- NOTE | 2024-05-23 19:31 | PC.NURSE ---
After report pt c/o nausea stated that nausea came after pain that she has been in pain for awhile oxycontin PO did not help only for approx one hour. Provided pt with Zofran per order. Contacted Dr. Hughes new orders for scheduled Tylenol, Morphine 4 q4 breakthrough pain and mylicon q6 as needed. Will infrom pt and await for pharmacy verification
[2024-05-23] MEDS: MORPHINE SULF INJ 10 MG/ML VIAL 4 MG IVP (19:44)
[2024-05-23] MEDS: ACETAMINOPHEN IVPB 1,000 MG/100 ML VIAL 250 MG IV (19:49)
[2024-05-23] MEDS: SIMETHICONE 80 MG CHEW PO (19:51)
[2024-05-23] MEDS: DOCUSATE SOD 100 MG CAPSULE PO (19:51)
[2024-05-24] VITALS (8 sets, daily range): BP systolic 109–137; BP diastolic 62–84; PULSE 56–83; RESP 16–97; TEMP 36.1–36.8; O2SAT 94–97
[2024-05-24] MEDS: PIPER/TAZO INJ 4.5 GM in SODIUM CHLORIDE 0.9% (POP) 100 ML IV ×5 (00:01→23:02)
[2024-05-24] MEDS: ACETAMINOPHEN IVPB 1,000 MG/100 ML VIAL 250 MG IV ×4 (00:44→22:30)
[2024-05-24] MEDS: ONDANSETRON INJ 2 MG/ML INJ 2 ML 4 MG IV ×2 (00:54→05:09)
[2024-05-24] MEDS: MORPHINE SULF INJ 10 MG/ML VIAL 4 MG IVP (05:09)
[2024-05-24 05:51] LABS: Basophils % (Auto) 0 % (0-2.5); Eosinophils % (Auto) 1 % (0-10); Hematocrit 31.6 % (36.0-46.0); Hemoglobin 9.9 g/dL (12.0-16.0); Immature Granulocytes % (Auto) 0 % (0-0); Immature Granulocytes Auto 0.02 Thou/mm3 (0.00-0.00); Lymphocytes # (Auto) 0.9 Thou/mm3 (1.0-4.8); Lymphocytes % (Auto) 18 % (10-50); Mean Corpuscular HGB Conc 31.3 g/dl (31.0-37.0); Mean Corpuscular Hemoglobin 25.1 pg (25.0-35.0); Mean Corpuscular Volume 80 fL (80-100); Monocytes # (Auto) 0.2 Thou/mm3 (0.0-0.8); Monocytes % (Auto) 5 % (0-12); Neutrophils % (Auto) 77 % (37-80); Nucleated Red Blood Cell % 0 /100 WBC (0); Platelet Count 269 Thou/mm3 (140-440); Red Blood Count 3.94 Miln/mm3 (4.00-5.20); White Blood Count 5.2 Thou/mm3 (3.6-11.0)
[2024-05-24 06:32] LABS: Anion Gap 7 (7-16); BUN/Creatinine Ratio 13 Ratio (12-20); Blood Urea Nitrogen 10 mg/dL (9-23); Calcium 8.7 mg/dL (8.3-10.6); Carbon Dioxide 28.4 mMol/L (20.0-31.0); Chloride 103 mMol/L (98-107); Creatinine (Component) 0.8 mg/dL (0.6-1.3); Estimated Creatinine Clearance 100.5 mL/min (>60); Glucose 113 mg/dL (74-106); Magnesium 2.1 mg/dL (1.6-2.6); Osmolality,Calculated 275 (275-295); Phosphorous 2.4 mg/dL (2.4-5.1); Sodium 138 mMol/L (136-145); eGFR > 60 See Note
--- NOTE | 2024-05-24 08:48 | PC.SS ---
Addendum entered by Rachael Pollard 05/24/24 15:39: SS rounding note: Staying 1 more day due to pain and nausea. Original Note: SS rounding note: May discharge today, 05/24/24, if Dr. Saini clears patient.
[2024-05-24] MEDS: PROMETHAZINE INJ 12.5 MG in SODIUM CHLORIDE 0.9% 50 ML 2.5 MG IV (10:09)
--- NOTE | 2024-05-24 13:57 | XR_ITS ---
Examination: CT abdomen with intravenous contrast CT pelvis with intravenous contrast 2-D coronal reconstructions 2-D sagittal reconstructions Date and time of exam:May 25, 2024 0511 hours Comparison May 22, 2024 INDICATIONS: Right lower abdominal pain beginning [address] abdomen pelvis May 22, 2024 perforated acute appendicitis with small periappendiceal abscess CTDI: vol (mGy) 12.1 DLP: (mGycm) 677 Technique: Multiple axial sections of the abdomen and pelvis have been obtained. 64 slice high-resolution scanner used. 3 mm axial sections have been obtained, post intravenous injection 60 cc [id number] 2-D sagittal, coronal reconstructions obtained. Low dose protocols were performed. One or more of the following dose reduction techniques were used; automated exposure control, adjustment of the mA and/or KV according to patient size, use of iterative reconstruction technique. Findings: No focal liver or splenic lesions Absent gallbladder No pancreatic mass No hydronephrosis Aorta normal size Again noted small pericecal abscess, 31 x 32 mm No pelvic mass IMPRESSION: Findings remain consistent with perforated acute appendicitis with small pericecal abscess This abscess is too small for successful percutaneous catheter placement at this time, suggest follow-up CT examination in 2-3 days
--- NOTE | 2024-05-24 14:00 | ESPR_ITS ---
Documentation for date of: 05/24/24 Subjective Subjective Brief History: 38F presenting with abdominal pain. Patient reports pain began 3 days before presentation, at the umbilicus and then migrated to the right lower quadrant, associated with nausea and dysuria. Patient took [id number] medications and felt that the pain improved, however the day before presentation it returned and persisted prompting her to seek care in ER. Workup is consistent with perforated appendicitis and patient has remained afebrile, today WBC 12.5 from 13 and she reports pain has somewhat improved although not fully subsided PMH: Denies PSH: Cholecystectomy Meds: Ibuprofen as needed Allergies: NKDA Family history: No known malignancies Narrative: Pt was having more pain yesterday after attempting transition to PO meds, she feels it is more controlled now with PRN morphine but she also developed nausea/vomiting today. She remains afebrile with normal WBC, is passing gas but has not had a BM as of yet this admission Exam Vital Signs Temp Pulse Resp BP Pulse Ox O2 Del Method 97.1 F 78 16 109/62 95 Room Air 05/24/24 11:19 05/24/24 11:19 05/24/24 11:19 05/24/24 11:19 05/24/24 11:19 05/24/24 11:19 Constitutional Constitutional: no acute distress Routine Respiratory Exam Respiratory: Present no resp distress Routine Abdominal Exam Abdominal: Present soft and tenderness (mild tenderness RLQ); Absent distended, rebound or guarding Results Results: Laboratory Laboratory results: results reviewed Assessment & Plan Plan 38F otherwise healthy presenting with signs and symptoms of perforated appe ndicitis. On admission pt was clinically well with pain controlled, no fever and normal WBC, so given the imaging findings I explained that medical management was preferable given the risk that the appendix was too walled off to be safely removed. Pt has remained hemodynamically normal with WBC normal, however continues to have moderate pain and developed nausea/vomiting today CT AP to eval for abscess Pain control prn Continue abx
--- NOTE | 2024-05-24 15:09 | ESPR_ITS ---
<Statement entered by Pato Herrera MD - 05/25/24 09:10> Senior Resident Attestation: I supervised/discussed management plan with qa internship physician Dr. Gore, and was involved in the care of this patient. I personally saw and examined the patient and discussed the assessment and plan with the entire medicine team, including my attending. I agree with the assessment and plan as documented. Patient's care was discussed with attending physician, Dr. Garcia. Pato Herrera MD PGY-2. Documentation for date of: 05/24/24 Subjective Subjective Interval history: Patient is seen and examined at bedside. Overnight patient complained of severe nausea, vomitings and received multiple doses of pain medication, including morphine 4 Mg and oxycodone Patient still complaining of nausea, vomiting in the morning. Also complaining of pain in the right lower quadrant which is almost as worse as at the time of admission Vitals are stable. Lab's are within normal limits except for mild anemia 9.9 Dr. Saini recommended repeat abdomen/pelvis CT if the same times continues As patient is not able to tolerate solid food, switch to liquid diet Exam Vital Signs Temp Pulse Resp BP Pulse Ox O2 Del Method 97.1 F 78 16 109/62 95 Room Air 05/24/24 11:19 05/24/24 11:19 05/24/24 11:19 05/24/24 11:19 05/24/24 11:19 05/24/24 11:19 Narrative Exam General: Awake. Resting comfortably on the bed HEENT: Normocephalic, atraumatic, mucous membranes moist. Heart: Regular rate and rhythm, no murmurs. Lungs: Clear to auscultation with no wheezing or crackles. Abdomen: Soft, nondistended, moderate tenderness in the right lower quadrant and hypogastric region. No guarding or rebound tenderness. Neurologic: Alert and oriented x3, no gross neurological deficit, and patient able to move all 4 extremities. Extremities: No edema. Skin: No rash or ecchymoses. Objective Labs 05/25/24 04:45 05/25/24 04:45 Labs: Laboratory Results - last 24 hr 05/24/24 04:48 WBC 5.2 RBC 3.94 L Hgb 9.9 L Hct 31.6 L MCV 80 MCH 25.1 MCHC 31.3 RDW Std Deviation 41.0 Plt Count 269 Neut % (Auto) 77 Lymph % (Auto) 18 [place] % (Auto) 5 Eos % (Auto) 1 Baso % (Auto) 0 Neut # (Auto) 4.0 Lymph # (Auto) 0.9 L [place] # (Auto) 0.2 Eos # (Auto) 0.0 Baso # (Auto) 0.0 Immature Gran # (Auto) 0.02 H Absolute Nucleated RBC 0.00 Immature Gran % 0 Nucleated RBC % 0 Sodium 138 Potassium 4.0 D Chloride 103 Carbon Dioxide 28.4 Anion Gap 7 BUN 10 Creatinine 0.8 Estim Creat Clear Calc 100.5 eGFR > 60 BUN/Creatinine Ratio 13 Glucose 113 H Calculated Osmolality 275 Calcium 8.7 Phosphorus 2.4 Magnesium 2.1 Quality Measures Quality Measures none Assessment & Plan Assessment Current Active Medications: Generic Name Dose Route Start Last Admin Trade Name Freq PRN Reason Stop Dose Admin Docusate Sodium 100 mg 05/23/24 09:27 05/23/24 19:51 Docusate Sod 100 Mg Capsule PO 06/22/24 09:26 100 mg QDAY PRN Administration CONSTIPATION Protocol Hydromorphone HCl 0.5 mg 05/24/24 09:31 Hydromorphone Inj 2 Mg/Ml Vial IVP 05/29/24 09:30 Q4HR PRN Pain 7-10 Protocol Piperacillin Sod/Tazobactam 100 mls @ 200 mls/hr 05/22/24 06:00 05/24/24 14:13 Sod 4.5 gm/ Sodium Chloride IV 05/29/24 05:59 200 mls/hr Q6HR YUSEF Administration Promethazine HCl 12.5 mg/ 50.5 mls @ 2.5 mls/min 05/24/24 09:30 05/24/24 10:09 Sodium Chloride IV 06/23/24 09:29 2.5 mls/min Q6HR PRN Administration NAUSEA OR VOMITING Protocol Lidocaine 1 patch 05/22/24 13:47 05/23/24 15:09 Lidocaine 5% 1 Patch TOP 06/21/24 13:46 1 patch UD PRN Administration PAIN Protocol Ondansetron HCl 4 mg 05/22/24 02:22 05/24/24 05:09 Ondansetron Inj 2 Mg/Ml Inj 2 Ml IV 06/21/24 02:21 4 mg Q6H PRN Administration NAUSEA OR VOMITING Protocol Oxycodone HCl 10 mg 05/23/24 15:46 05/23/24 16:00 Oxycodone Hcl 5 Mg Ir Tab PO 05/28/24 15:45 10 mg Q4HR PRN Administration PAIN SCALE 7-10 (Severe Simethicone 80 mg 05/23/24 19:24 05/23/24 19:51 Simethicone 80 Mg Chew PO 06/22/24 19:23 80 mg QID PRN Administration GAS Plan A 38-year-old female patient and known case of any medical condition presented to the ED due to abdominal pain that started 4 days ago. Patient reported that on Tuesday last week she started to feel acute abdominal pain located at the umbilical and the right side of the abdomen. Patient was admitted for management of sepsis secondary to perforated appendicitis #Perforated appendicitis Presented to the hospital with complaint of pain in the right lower quadrant since 3 days, no associated fever, nausea, vomitings Vitals are stable at the time of admission. Labs showed mild leukocytosis with WBC 12.5 CT scan of the abdomen and pelvis showed perforated acute appendicitis with small leno appendicular abscess, secondary inflammation of the terminal ileum and cecal base. Patient was given acetaminophen, Zosyn, Zofran, morphine in the ED. General surgeon Dr. Saini was consulted by the ED recommended to admit the patient for further management Plan - Admit patient to Med-surg - Start the patient on zosyn 4.5mg QID - Tylenol IV for fever or mild pain and oxycodone, Dilaudid as needed - Will continue liquid diet for now as patient is not able to tolerate a solid feeds - General surgon Dr Gutierrez was consulted and recommended conservative management for now - Started on promethazine as patient is still having nausea and vomitings, likely secondary to morphine use/ - Protonix IV qday Hospital Maintenance: FEN: Liquid diet DVT ppx: SCD GI ppx:Protonix IV lines:PIV Roy:None Code status:Full Code Dispo:Med-Surg Patient plan of care was discussed with the attending physician, Dr. Garcia and senior resident Dr. Kathy Gore, PGY1 Attending Provider Attestation/Addendum Face to face evaluation was performed by me. I have personally seen and examined the patient. I discussed the assessment and plan with the entire medicine team. I reviewed available medical records, imaging studies, laboratory results. I agree with the above subjective data, objective findings, assessment and plan except as corrected by me or noted below Acute appendicitis Ruptured appendix Abdominal pain due to above Nausea and vomiting due to above - Continue iv zosyn add prn compazine, monitor clinical course po diet no Surgical iterentin planned for now
[2024-05-24] MEDS: DOCUSATE SOD 100 MG CAPSULE PO (20:10)
[2024-05-25] VITALS: BP 127/78; PULSE 77; RESP 18; TEMP 36.6; O2SAT 96
[2024-05-25] MEDS: PROMETHAZINE INJ 12.5 MG in SODIUM CHLORIDE 0.9% 50 ML 2.5 MG IV (00:31)
[2024-05-25 04:00] VITALS: BP 120/76; PULSE 75; RESP 18; TEMP 36.3; O2SAT 96
[2024-05-25] MEDS: ONDANSETRON INJ 2 MG/ML INJ 2 ML 4 MG IV (04:48)
--- NOTE | 2024-05-25 04:55 | PC.NURSE ---
Pt taken to CT via transport with Valentin CHRISTINA
[2024-05-25 05:30] LABS: Basophils % (Auto) 0 % (0-2.5); Eosinophils # (Auto) 0.1 Thou/mm3 (0.0-0.5); Eosinophils % (Auto) 2 % (0-10); Hematocrit 32.3 % (36.0-46.0); Hemoglobin 10.1 g/dL (12.0-16.0); Immature Granulocytes % (Auto) 0 % (0-0); Immature Granulocytes Auto 0.02 Thou/mm3 (0.00-0.00); Lymphocytes # (Auto) 1.3 Thou/mm3 (1.0-4.8); Lymphocytes % (Auto) 26 % (10-50); Mean Corpuscular HGB Conc 31.3 g/dl (31.0-37.0); Mean Corpuscular Hemoglobin 25.4 pg (25.0-35.0); Mean Corpuscular Volume 81 fL (80-100); Monocytes # (Auto) 0.2 Thou/mm3 (0.0-0.8); Monocytes % (Auto) 4 % (0-12); Neutrophils # (Auto) 3.3 Thou/mm3 (1.8-7.7); Neutrophils % (Auto) 67 % (37-80); Nucleated Red Blood Cell % 0 /100 WBC (0); Platelet Count 300 Thou/mm3 (140-440); RDW Standard Deviation 40.6 fL (36.4-46.3); Red Blood Count 3.98 Miln/mm3 (4.00-5.20); White Blood Count 4.8 Thou/mm3 (3.6-11.0)
--- NOTE | 2024-05-25 05:30 | PC.NURSE ---
Pt back from CT
[2024-05-25] MEDS: PIPER/TAZO INJ 4.5 GM in SODIUM CHLORIDE 0.9% (POP) 100 ML IV ×2 (05:35→11:57)
[2024-05-25] MEDS: ACETAMINOPHEN IVPB 1,000 MG/100 ML VIAL 250 MG IV ×2 (05:35→11:54)
[2024-05-25 06:09] LABS: Anion Gap 8 (7-16); BUN/Creatinine Ratio 13 Ratio (12-20); Blood Urea Nitrogen 10 mg/dL (9-23); Calcium 8.6 mg/dL (8.3-10.6); Carbon Dioxide 27.4 mMol/L (20.0-31.0); Chloride 103 mMol/L (98-107); Creatinine (Component) 0.8 mg/dL (0.6-1.3); Estimated Creatinine Clearance 100.5 mL/min (>60); Glucose 102 mg/dL (74-106); Osmolality,Calculated 274 (275-295); Phosphorous 2.1 mg/dL (2.4-5.1); Potassium 3.7 mMol/L (3.4-5.1); Sodium 138 mMol/L (136-145); eGFR > 60 See Note
--- NOTE | 2024-05-25 06:37 | PRELIM_ITS ---
CT scan of the abdomen and pelvis with intravenous contrast (axial sections with sagittal and coronal reformats). May 25, 2024 at 0511 hours Clinical History: Perforated appendicitis with increased pain, nausea, vomiting. Comparison: Compared with the prior study dated May Findings: The lung bases are clear. Again seen isacute complicated appendicitis with small collection seen now mainly at the base of the appendix measuring 3.6x2.4 cm. Again seen issecondary inflammation of the terminal ileum and cecal base. The gallbladder is surgically absent. Hepatomegaly measuring 19.4 cm. The pancreas, spleen, kidneys and adrenals are unremarkable. There are bilateral renal cysts, thelargest measuring 1 cm on the right. No evidence of bowel obstruction. There is no mesenteric or retroperitoneal adenopathy. The urinary bladder is unremarkable. There is no free fluid or free air. There is small right ovarian cyst measuring 3.5 cm, unchanged since the prior examination. The osseous structures are unremarkable. Impression: Acute complicated appendicitis with small collection likely abscess at the base of the appendix. Secondary inflammation of theterminal ileum and cecal base. No definite free air. Other findings as described above. Report Electronically Signed By: Orville Petit 05/25/2024 6:36:38 AM [EST]
[2024-05-25 08:00] VITALS: BP 113/64; PULSE 66; RESP 15; TEMP 36.2; O2SAT 98
[2024-05-25 10:23] VITALS: BMI 35.2
[2024-05-25 11:54] VITALS: BP 119/79; PULSE 79; RESP 16; TEMP 36.5; O2SAT 97
--- NOTE | 2024-05-25 15:13 | PD.RESPRO ---
Documentation for date of: 05/25/24 Subjective Subjective Interval history: Patient is seen and examined at the bedside No acute overnight events. But still complaining of nausea and vomiting Repeat CT abdomen/pelvis showed small abscess 31 x 32 mm Exam Vital Signs Temp Pulse Resp BP Pulse Ox O2 Del Method 97.7 F 79 16 119/79 97 Room Air 05/25/24 11:54 05/25/24 11:54 05/25/24 11:54 05/25/24 11:54 05/25/24 11:54 05/25/24 11:54 Narrative Exam General: Awake. Resting comfortably on the bed HEENT: Normocephalic, atraumatic, mucous membranes moist. Heart: Regular rate and rhythm, no murmurs. Lungs: Clear to auscultation with no wheezing or crackles. Abdomen: Soft, nondistended, mild tenderness in the right lower quadrant and hypogastric region. No guarding or rebound tenderness. Neurologic: Alert and oriented x3, no gross neurological deficit, and patient able to move all 4 extremities. Extremities: No edema. Skin: No rash or ecchymoses. Objective Labs 05/25/24 04:45 05/25/24 04:45 Labs: Laboratory Results - last 24 hr 05/25/24 04:45 WBC 4.8 RBC 3.98 L Hgb 10.1 L Hct 32.3 L MCV 81 MCH 25.4 MCHC 31.3 RDW Std Deviation 40.6 Plt Count 300 D Neut % (Auto) 67 Lymph % (Auto) 26 [place] % (Auto) 4 Eos % (Auto) 2 Baso % (Auto) 0 Neut # (Auto) 3.3 Lymph # (Auto) 1.3 [place] # (Auto) 0.2 Eos # (Auto) 0.1 Baso # (Auto) 0.0 Immature Gran # (Auto) 0.02 H Absolute Nucleated RBC 0.00 Immature Gran % 0 Nucleated RBC % 0 Sodium 138 Potassium 3.7 Chloride 103 Carbon Dioxide 27.4 Anion Gap 8 BUN 10 Creatinine 0.8 Estim Creat Clear Calc 100.5 eGFR > 60 BUN/Creatinine Ratio 13 Glucose 102 Calculated Osmolality 274 L Calcium 8.6 Phosphorus 2.1 L Quality Measures Quality Measures none Assessment & Plan Assessment Current Active Medications: Generic Name Dose Route Start Last Admin Trade Name Freq PRN Reason Stop Dose Admin Docusate Sodium 100 mg 05/25/24 21:00 Docusate Sod 100 Mg Capsule PO 06/24/24 20:59 BID YUSEF Protocol Hydromorphone HCl 0.5 mg 05/24/24 09:31 Hydromorphone Inj 2 Mg/Ml Vial IVP 05/29/24 09:30 Q4HR PRN Pain 7-10 Protocol Piperacillin Sod/Tazobactam 100 mls @ 200 mls/hr 05/22/24 06:00 05/25/24 11:57 Sod 4.5 gm/ Sodium Chloride IV 05/29/24 05:59 200 mls/hr Q6HR YUSEF Administration Promethazine HCl 12.5 mg/ 50.5 mls @ 2.5 mls/min 05/24/24 09:30 05/25/24 00:52 Sodium Chloride IV 06/23/24 09:29 Infused Q6HR PRN Infusion NAUSEA OR VOMITING Protocol Acetaminophen 1,000 mg in 100 mls @ 250 mls/hr 05/24/24 22:00 05/25/24 11:54 Ofirmev Inj IV 05/27/24 06:23 250 mls/hr Q6HR YUSEF Administration Lidocaine 1 patch 05/22/24 13:47 05/23/24 15:09 Lidocaine 5% 1 Patch TOP 06/21/24 13:46 1 patch UD PRN Administration PAIN Protocol Ondansetron HCl 4 mg 05/22/24 02:22 05/25/24 04:48 Ondansetron Inj 2 Mg/Ml Inj 2 Ml IV 06/21/24 02:21 4 mg Q6H PRN Administration NAUSEA OR VOMITING Protocol Oxycodone HCl 10 mg 05/23/24 15:46 05/23/24 16:00 Oxycodone Hcl 5 Mg Ir Tab PO 05/28/24 15:45 10 mg Q4HR PRN Administration PAIN SCALE 7-10 (Severe Simethicone 80 mg 05/23/24 19:24 05/23/24 19:51 Simethicone 80 Mg Chew PO 06/22/24 19:23 80 mg QID PRN Administration GAS Plan A 38-year-old female patient and known case of any medical condition presented to the ED due to abdominal pain that started 4 days ago. Patient reported that on Tuesday last week she started to feel acute abdominal pain located at the umbilical and the right side of the abdomen. Patient was admitted for management of sepsis secondary to perforated appendicitis #Perforated appendicitis Presented to the hospital with complaint of pain in the right lower quadrant since 3 days, no associated fever, nausea, vomitings Vitals are stable at the time of admission. Labs showed mild leukocytosis with WBC 12.5 CT scan of the abdomen and pelvis showed perforated acute appendicitis with small leno appendicular abscess, secondary inflammation of the terminal ileum and cecal base. Patient was given acetaminophen, Zosyn, Zofran, morphine in the ED. General surgeon Dr. Hughes was consulted by the ED recommended to admit the patient for further management Plan - Admit patient to Med-surg - Start the patient on zosyn 4.5mg QID - Tylenol IV for fever or mild pain and oxycodone, Dilaudid as needed - Will continue pureed diet for now as patient is not able to tolerate solid feeds - General surgeon Dr Hughes was consulted and recommended conservative management for now - Started on promethazine as patient is still having nausea and vomitings, likely secondary to morphine use - Protonix IV qday Hospital Maintenance: FEN: Pureed diet DVT ppx: SCD GI ppx:Protonix IV lines:PIV Roy:None Code status:Full Code Dispo:Med-Surg Patient plan of care was discussed with the attending physician, Dr. Garcia and senior resident Dr. Kathy Gore, PGY1 Attending Provider Attestation/Addendum I reviewed labs, imaging, EKG, home medications and prior available records. Face to face evaluation was performed by me. I have personally examined the patient and discussed assessment and plan with the IM team. I reviewed the resident note and agree with the plan with exceptions as below. Acute appendicitis, perforated Leukocytosis Right lower quadrant abdominal pain Intractable nausea and vomiting Symptomatic management of pain and nausea/vomiting. Transition to oral opiates Trend WBC: Downtrending Consulted general surgery: Recommended no surgical intervention at this moment. Started clear liquid diet. Advanced the diet to solid food Discharge on 05/24 in case of further improvement of symptoms and tolerance of advanced diet
--- NOTE | 2024-05-25 15:37 | PD.RESDS ---
Planned Discharge Date 05/25/24 DS: Providers Provider Date of admission: 05/22/24 02:20 Primary care physician: Sundar Nielson MD Admitting Provider: Mary Dong MD Attending Provider on Admission: Fred Garcia MD Consults: 05/22/24 01:52 Consult to General Surgery Stat Comment: Consulting Provider: Izzy Hughes Attending Provider on DC: Frankie Gore MD Discharging Provider: Frankie Gore MD DS: Diagnosis Problem List Completed Was Problem List Reviewed/Reconciled?: Yes Hospital Course Hospital Course Hospital course: A 38-year-old female patient with no significant past medical history presented to the hospital with abdominal pain, vomiting and admitted for perforated appendicitis. Vitals are stable. Labs are unremarkable except for hb of around 9.9. CT scan of the abdomen and pelvis showed perforated acute appendicitis with small leno appendicular abscess, secondary inflammation of the terminal ileum and cecal base. No definite free air. Patient was given acetaminophen, Zosyn, Zofran, morphine. General surgeon Dr. Hughes was consulted and recommended conservative management. Repeat CT abd/pelvis showed the same. Patient is discharged to the home with the following medications and recommendations -Follow-up with PCP within 1 week of discharge. If you do not have appointment, please follow-up with the [facility] with Dr. Gore. Call [phone] to make an appointment. -Follow up with Dr. Hughes within 2 weeks of discharge in her office -Start taking Augmentin 875 Mg p.o. twice daily for 7 days -Oxycodone 5 Mg every 6th hrly as needed and zofran 4mg every 6th hourly as needed -Return to ED if symptoms persist or return #Perforated appendicitis Patient plan of care was discussed with the attending physician, Dr. Garcia and senior resident Dr. Javier Gore, PGY1 Time Spent with Patient Time attestation: Total time spent providing and/or coordinating discharge services: Time spent: Greater than 30 minutes Exam Vital Signs Temp Pulse Resp BP Pulse Ox O2 Del Method 97.7 F 79 16 119/79 97 Room Air 05/25/24 11:54 05/25/24 11:54 05/25/24 11:54 05/25/24 11:54 05/25/24 11:54 05/25/24 11:54 Narrative Exam General: Awake. Resting comfortably on the bed HEENT: Normocephalic, atraumatic, mucous membranes moist. Heart: Regular rate and rhythm, no murmurs. Lungs: Clear to auscultation with no wheezing or crackles. Abdomen: Soft, nondistended, moderate tenderness in the right lower quadrant and hypogastric region. No guarding or rebound tenderness. Neurologic: Alert and oriented x3, no gross neurological deficit, and patient able to move all 4 extremities. Extremities: No edema. Skin: No rash or ecchymoses. Discharge Plan Plan Patient Disposition: HOME (Self Care) Care Plan Goals: -Follow-up with primary care provider within 1 week of discharge. If you do not have appointment, please follow-up with the [facility] with Dr. Gore. Call [phone] to make an appointment. -Follow up with Dr. Hughes within 2 weeks of discharge in her office -Start taking Augmentin 875 Mg p.o. twice daily for 7 days -Oxycodone 5 Mg every 6th hrly as needed and zofran 4mg every 6th hourly as needed -Return to ED if symptoms persist or return Prescriptions/Referrals Prescriptions/Med Rec: New amoxicillin-pot clavulanate 875-125 mg tablet 1 tab PO BID 7 Days Qty: 14 0RF ondansetron 4 mg tablet,disintegrating 4 mg PO Q6H PRN (Reason: nausea and vomiting) 3 Days Qty: 14 0RF oxycodone 5 mg capsule 5 mg PO Q6H MDD 20 mg PRN (Reason: pain) 3 Days Qty: 14 0RF Continued ibuprofen 800 mg tablet 800 mg PO TID PRN (Reason: fever or pain) Qty: 30 0RF Referrals: Sundar Nielson MD [Primary Care Provider] - Izzy Hughes MD [Physician] - (You will receive a phone call to confirm a follow-up appointment with me on Sunday 06/11) Patient/Caregiver Discharge Instructions Education Materials: Abdominal Pain, What Is Appendicitis? Print Language: Turkish Stand Alone Forms: Shae Award Info., Patient Portal Info Letter Discharge Order Discharge Orders: Discharge (Routine); Ordered 05/25/24 Ordered By: Frankie Gore Quality Discharge Quality Measures VTE prophylaxis Attestestation Attestation Face to face evaluation was performed by me. I have personally seen and examined the patient. I discussed the assessment and plan with the entire medicine team. I reviewed available medical records, imaging studies, laboratory results. I agree with the above subjective data, objective findings, assessment and plan except as corrected by me or noted below Acute appendicitis Ruptured appendix Abdominal pain due to above Nausea and vomiting due to above -Patient improved, wants to go home, discussed with surgery Dr. Plan to discharge her on Augmentin p.o., as needed oxycodone and as needed Zofran. Patient to follow-up with PCP and surgery after discharge Ellen
--- NOTE | 2024-05-25 15:44 | PD.SURPROG ---
Documentation for date of: 05/25/24 Subjective Subjective Brief History: 38F presenting with abdominal pain. Patient reports pain began 3 days before presentation, at the umbilicus and then migrated to the right lower quadrant, associated with nausea and dysuria. Patient took [id number] medications and felt that the pain improved, however the day before presentation it returned and persisted prompting her to seek care in ER. Workup is consistent with perforated appendicitis and patient has remained afebrile, today WBC 12.5 from 13 and she reports pain has somewhat improved although not fully subsided PMH: Denies PSH: Cholecystectomy Meds: Ibuprofen as needed Allergies: NKDA Family history: No known malignancies Narrative: Patient underwent CT to evaluate nausea/vomiting, it showed a small periappendiceal abscess not amenable to drainage. As of this afternoon patient reports feeling much better, she has no nausea, last emesis was at 2 AM, she has been tolerating liquids, had 2 bowel movements and has no more pain Exam Vital Signs Temp Pulse Resp BP Pulse Ox O2 Del Method 97.7 F 79 16 119/79 97 Room Air 05/25/24 11:54 05/25/24 11:54 05/25/24 11:54 05/25/24 11:54 05/25/24 11:54 05/25/24 11:54 Constitutional Constitutional: no acute distress Routine Respiratory Exam Respiratory: Present no resp distress Routine Abdominal Exam Abdominal: Present soft; Absent tenderness or distended Results Results: Laboratory Laboratory results: results reviewed Results: Imaging CT scan - abdomen: report reviewed and image reviewed Assessment & Plan Plan 38F otherwise healthy presenting with signs and symptoms of perforated appendicitis, managed medically as patient has remained hemodynamically normal with no fever and normal WBC. Patient has remained hospitalized due to ongoing pain and nausea/vomiting, however as of today she is feeling much better with no current pain and resolved nausea. Okay to discharge home to complete p.o. antibiotic course 7 more days Return precautions discussed Will follow-up as outpatient
[2024-05-25 15:57] VITALS: BP 120/73; PULSE 76; RESP 16; TEMP 36.2; O2SAT 98
== END 2024-05-25 17:00 | disposition home or self-care (01) | DRG 248 ==
LOC: SERX 05-22 02:06 → SERHOLD 05-22 02:58 → S3NX 05-22 05:28
PROVIDERS: Physician Assistant; Student in an Organized Health Care Education/Training Program; Admitting Provider Student in an Organized Health Care Education/Training Program; Emergency Provider Emergency Medicine; PCP Family Medicine; Visit Provider Internal Medicine
DX: K35.33 Acute appendicitis with perforation, localized peritonitis, and gangrene, with abscess (principal); Z90.49 Acquired absence of other specified parts of digestive tract
CPT/HCPCS: 36415; 71046; 74176; 74177; 80048; 80053; 81001; 83605; 83690; 83735; 84100; 84439; 84443; 84703; 85025; 85610; 85730; 87040; 87086; 96361; 96365; 96375; 99285; A4649; J0131; J1885; J2270; J2405; J2470; J2543; J2550; J3490; J7030; J7120; Q0162; Q9967; A9270

== ENCOUNTER 2024-06-11 14:34 | Outpatient (AMB) | payer MEDICAID, SELFPAY ==
--- NOTE | 2024-06-11 14:39 | GSCOFFNT_ITS ---
Vital Signs - [facility] 06/11/24 14:44 Height 1.6 m Height Method Stated Weight 88.677 kg Weight Measurement Method Standing Scale BMI 34.6 BP 129/82 Blood Pressure Source Automatic Cuff Blood Pressure Location Right Upper Arm Position Sitting Respiration 18 Pulse 80 Pulse Source Monitor Temp 96.9 F Temp Source Temporal Artery Scan Pulse Oximetry (%) 95 Oxygen Delivery Method Room Air Med/Allergies Allergies & Medications Allergies No Known Allergies Allergy (Verified 06/11/24 14:45) Medication Reconciliation ibuprofen 800 mg tablet 800 mg PO TID PRN fever or pain #30 tabs 08/02/17 [Rx Confirmed 06/11/24] MA Intake Visit Data Collection New Patient or Established: Established Patient (seen at [facility] within 3 years) Seen by Clinical Staff ONLY (RN/MA): No Reason for Visit:: ABDOMINAL PAIN/APPENDIX RUPTURE Pain Present Currently: Yes (WITH PRESSUTE) Pain Location: Abdomen Pain scale:: 8 (WITH PRESSURE) PCP or OBGYN visit in last 3 months: Yes Hx Now: No Do You Feel Safe at Home: Yes Authorities Contacted: N/A Smoking Status Smoking Status: Never smoker Immunization / Flu Flu Vaccine in the Last 12 Months: No Flu Vaccine Exclusion Criteria: Refused by Patient Past Medical History Past Medical History NEUROLOGIC: Negative Neurological Disorders CARDIAC: Negative Cardiac Disorders or Congestive Heart Failure RESPIRATORY: Negative Chronic Obstructive Pulmonary Disease (COPD) or Asthma GASTROINTESTINAL: Negative Gastrointestinal Disorders, Hepatitis or Colorectal Cancer GENITOURINARY: Negative Genitourinary Disorders, Renal Disease or Prostate Cancer REPRODUCTIVE: Positive Previous Pregnancies; Negative Breast Cancer, Endometriosis, Genital Herpes, Gonorrhea, Pelvic Inflammatory Disease, Syphilis, Testicular Cancer or Uterine Prolapse MUSCULOSKELETAL: Negative Bone Cancer ENDOCRINE: Negative Endocrine Disorders, Diabetes Mellitus Type 1 or Diabetes Mellitus Type 2 HEMATOLOGIC: Negative Blood Disorders or Sickle Cell Disease OTHER HISTORY: Positive Hospitalization (ABOUT 2 DAYS FOR THE GALLBLADDER REMOVAL) and Chicken Pox (ABOUT AGE 5); Negative Down Syndrome, Developmental Delay, Shingles, Falls, Blood Transfusions, Blood Transfusion Reaction, Anesthesia Reactions, Organ Transplant, Chemotherapy, Radiation Therapy, Hyperbaric Therapy, MRSA, VRSA, Va ncomycin-Resistant Enterococci, Human Immunodeficiency Virus (HIV), Measles, Mumps, Rubella (Swedish Measles), Pertussis, Clostridium Difficile, Breast Cancer, Cervical Cancer, Colorectal Cancer, Lung Cancer, Ovarian Cancer, Prostate Cancer or Testicular Cancer Family History FAMILY HISTORY: Negative Family Psychiatric Problems, Family Respiratory Disorders, Family Cardiac Disorders, Family Gastrointestinal Problems, Family Cancer, Family Surgery or Family Anesthesia Reaction Surgical History SURGICAL: Negative Cardiac Surgery, Endocrine Surgery, Ear Surgery, Abdominal Surgery, Nephrectomy, Joint Replacement, Neurologic Surgery, Mastectomy, Lumpectomy, Hysterectomy, Tubal Ligation, Section or Organ Transplant Social History SMOKING STATUS: Smoking status: Never smoker SECOND HAND EXPOSURE: second hand exposure: No ALCOHOL: Alcohol Intake: Current ALCOHOL FREQUENCY: Alcohol Intake Frequency: holidays/special occasions only HOUSING: Housing: Apartment LIVES WITH: Lives With: Family HPI HPI Narrative 38F who presented with perforated appendicitis 05/21/24, discharged home 05/25/24 here for planned follow up. Pt reports she had an episode of RLQ pain last night which abated after an hour, improved with ibuprofen and otherwise she is feeling ok with normal appetite and normal bowel function. 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 She denies any nausea or fever, has not had a colonoscopy but has no family history of CRC ROS Review of Systems Systems Reviewed: All systems reviewed, normal except as documented Objective/Exam General General Appearance: alert, cooperative and well groomed Resp Respiratory exam: Absent respiratory distress Abdominal Abdominal exam: Present soft; Absent distention or tenderness Assessment & Plan Diagnosis / Problem List (1) Acute appendicitis with rupture: Status: Acute Assessment & Plan: 38F who presented with perforated appendicitis 05/21/24 treated medically as she was overall hemodynamically normal, recovering well. I again explained that interval appendectomy is not mandatory but can be considered and pt is very eager to have this done as she still has episodes of discomfort and is generally afraid of her appendicitis returning. Plan: F/u in 6 weeks Office Procedures GNS Level of Care Nursing/Assessment Patient Status: Established Patient Nursing Assessment/Reassesment: Medication Reconciliation, Update PMH in EMR and Vital Signs Coordination of Care: Complex Care and Chronic Disease 1-5, Consent,records obtained, informed consent, Education Simp Pt/Fam, Results/Orders obtained and Staff clarify orders Established Patient Charge Established Patient Point Assignment: 90 Established Patient Point Charge: EP Level 3 (80-115) Patient Portal Questionaires Social History Living Situation History Housing: Apartment Tobacco History Smoking Status: Never smoker Second Hand Smoke Exposure: No Alcohol History Alcohol Intake: Current Alcohol Intake Frequency: holidays/special occasions only Domestic Abuse History Do You Feel Safe at Home: Yes Review of Systems Report any current symptoms Only answer those that you have currently: Past Medical History Past Medical History Have you ever been diagnosed with any of the following: Cardiology Problems Congestive Heart Failure: No Respiratory Problems Chronic Obstructive Pulmonary Disease (COPD): No Asthma: No Stomache/Intestinal Problems Hepatitis: No Colorectal Cancer: No Genital/Urinary Problems Renal Disease: No Reproductive Problems Breast Cancer: No Endometriosis: No Genital Herpes: No Gonorrhea: No Pelvic Inflammatory Disease: No Previous Pregnancies: Yes Syphilis: No Uterine Prolapse: No Musculoskeletal Problems Bone Cancer: No Endocrine Problems Diabetes Mellitus Type 1: No Diabetes Mellitus Type 2: No Blood Problems Sickle Cell Disease: No Other Problems Hospitalization: Yes (ABOUT 2 DAYS FOR THE GALLBLADDER REMOVAL) Down Syndrome: No Developmental Delay: No Shingles: No Falls: No Blood Transfusions: No Blood Transfusion Reaction: No Anesthesia Reactions: No Organ Transplant: No Chemotherapy: No Radiation Therapy: No Hyperbaric Therapy: No MRSA: No VRSA: No Vancomycin-Resistant Enterococci: No Human Immunodeficiency Virus (HIV): No Chicken Pox: Yes (ABOUT AGE 5) Measles: No Mumps: No Rubella (Swedish Measles): No Pertussis: No Clostridium Difficile: No Cervical Cancer: No Lung Cancer: No Ovarian Cancer: No Surgical History Hysterectomy: No
[2024-06-11 14:44] VITALS: BP 129/82; PULSE 80; RESP 18; TEMP 36.1; O2SAT 95; BMI 34.6
== END 2024-06-11 15:01 | disposition home or self-care (01) ==
LOC: HODSRG 14:34
PROVIDERS: PCP Family Medicine; Referring Provider Family Medicine; Supervising Provider Surgery; Visit Provider Surgery
DX: K35.32 Acute appendicitis with perforation, localized peritonitis, and gangrene, without abscess (principal)
CPT/HCPCS: 99213; G0463

== ENCOUNTER 2024-07-23 13:58 | Outpatient (AMB) | payer MEDICAID, SELFPAY ==
[2024-07-23 14:17] VITALS: BP 131/84; PULSE 77; RESP 18; TEMP 36.6; O2SAT 95; BMI 35.4
--- NOTE | 2024-07-23 14:17 | PD.GSCLVISIT ---
Vital Signs - [facility] 07/23/24 14:17 Height 1.6 m Height Method Stated Weight 90.718 kg Weight Measurement Method Standing Scale BMI 35.4 BP 131/84 H Blood Pressure Source Automatic Cuff Blood Pressure Location Left Upper Arm Position Sitting Respiration 18 Pulse 77 Pulse Source Monitor Temp 97.8 F Temp Source Temporal Artery Scan Pulse Oximetry (%) 95 Oxygen Delivery Method Room Air Med/Allergies Allergies & Medications Allergies No Known Allergies Allergy (Verified 07/23/24 14:18) Medication Reconciliation ibuprofen 800 mg tablet 800 mg PO TID PRN fever or pain #30 tabs 08/02/17 [Rx Confirmed 07/23/24] MA Intake Visit Data Collection New Patient or Established: Established Patient (seen at [facility] within 3 years) Seen by Clinical Staff ONLY (RN/MA): No Reason for Visit:: FOLLOW UP Pain Present Currently: No PCP or OBGYN visit in last 3 months: Yes Hx Now: No Do You Feel Safe at Home: Yes Authorities Contacted: N/A Smoking Status Smoking Status: Never smoker Immunization / Flu Flu Vaccine in the Last 12 Months: No Flu Vaccine Exclusion Criteria: No Exclusion Criteria Past Medical History Past Medical History NEUROLOGIC: Negative Neurological Disorders CARDIAC: Negative Cardiac Disorders or Congestive Heart Failure RESPIRATORY: Negative Chronic Obstructive Pulmonary Disease (COPD) or Asthma GASTROINTESTINAL: Negative Gastrointestinal Disorders, Hepatitis or Colorectal Cancer GENITOURINARY: Negative Genitourinary Disorders, Renal Disease or Prostate Cancer REPRODUCTIVE: Positive Previous Pregnancies; Negative Breast Cancer, Endometriosis, Genital Herpes, Gonorrhea, Pelvic Inflammatory Disease, Syphilis, Testicular Cancer or Uterine Prolapse MUSCULOSKELETAL: Negative Bone Cancer ENDOCRINE: Negative Endocrine Disorders, Diabetes Mellitus Type 1 or Diabetes Mellitus Type 2 HEMATOLOGIC: Negative Blood Disorders or Sickle Cell Disease OTHER HISTORY: Positive Hospitalization (ABOUT 2 DAYS FOR THE GALLBLADDER REMOVAL) and Chicken Pox (ABOUT AGE 5); Negative Down Syndrome, Developmental Delay, Shingles, Falls, Blood Transfusions, Blood Transfusion Reaction, Anesthesia Reactions, Organ Transplant, Chemotherapy, Radiation Therapy, Hyperbaric Therapy, MRSA, VRSA, Vancomycin-Resistant Enterococci, Human Immunodeficiency Virus (HIV), Measles, Mumps, Rubella (Zimbabwean Measles), Pertussis, Clostridium Difficile, Breast Cancer, Cervical Cancer, Colorectal Cancer, Lung Cancer, Ovarian Cancer, Prostate Cancer or Testicular Cancer Family History FAMILY HISTORY: Negative Family Psychiatric Problems, Family Respiratory Disorders, Family Cardiac Disorders, Family Gastrointestinal Problems, Family Cancer, Family Surgery or Family Anesthesia Reaction Surgical History SURGICAL: Negative Cardiac Surgery, Endocrine Surgery, Ear Surgery, Abdominal Surgery, Nephrectomy, Joint Replacement, Neurologic Surgery, Mastectomy, Lumpectomy, Hysterectomy, Tubal Ligation, Section or Organ Transplant Social History SMOKING STATUS: Smoking status: Never smoker SECOND HAND EXPOSURE: second hand exposure: No ALCOHOL: Alcohol Intake: Current ALCOHOL FREQUENCY: Alcohol Intake Frequency: holidays/special occasions only HOUSING: Housing: Apartment LIVES WITH: Lives With: Family HPI HPI Narrative 38F who presented with perforated appendicitis 05/21/24 treated medically as she was overall hemodynamically normal here for another follow up. Pt states she has been feeling well overall, though recently has had episodes of dizziness for which she is planning to see her PCP. She had some RLQ pain [place] but has not required any mediations, and denies any fever, anorexia, and nausea/vomiting ROS Review of Systems Systems Reviewed: All systems reviewed, normal except as documented Objective/Exam General General Appearance: alert, cooperative and well groomed Resp Respiratory exam: Absent respiratory distress Assessment & Plan Diagnosis / Problem List (1) Acute appendicitis with rupture: Status: Acute Assessment & Plan: 38F who presented with perforated appendicitis 05/21/24 treated medically as she was overall hemodynamically normal, recovering well. We have discussed the options of watchful waiting vs interval appendectomy at length and pt strongly prefers appendectomy. I will order a preoperative CT to evaluate for appendiceal inflammation, and pending that result will schedule appendectomy early August 2024 Orders: Orders CT abdomen pelvis w con 08/21/24 K35.32 - Acute appendicitis with perforation, localized peritonitis, and gangrene, without abscess Office Procedures GNS Level of Care Nursing/Assessment Patient Status: Established Patient Nursing Assessment/Reassesment: Medication Reconciliation, Update PMH in EMR and Vital Signs Coordination of Care: Complex Care and Chronic Disease 1-5, Consent,records obtained, informed consent, Education Simp Pt/Fam, Results/Orders obtained and Staff clarify orders Established Patient Charge Established Patient Point Assignment: 90 Established Patient Point Charge: EP Level 3 (80-115) Patient Portal Questionaires Social History Living Situation History Housing: Apartment Tobacco History Smoking Status: Never smoker Second Hand Smoke Exposure: No Alcohol History Alcohol Intake: Current Alcohol Intake Frequency: holidays/special occasions only Domestic Abuse History Do You Feel Safe at Home: Yes Review of Systems Report any current symptoms Only answer those that you have currently: Past Medical History Past Medical History Have you ever been diagnosed with any of the following: Cardiology Problems Congestive Heart Failure: No Respiratory Problems Chronic Obstructive Pulmonary Disease (COPD): No Asthma: No Stomache/Intestinal Problems Hepatitis: No Colorectal Cancer: No Genital/Urinary Problems Renal Disease: No Reproductive Problems Breast Cancer: No Endometriosis: No Genital Herpes: No Gonorrhea: No Pelvic Inflammatory Disease: No Previous Pregnancies: Yes Syphilis: No Uterine Prolapse: No Musculoskeletal Problems Bone Cancer: No Endocrine Problems Diabetes Mellitus Type 1: No Diabetes Mellitus Type 2: No Blood Problems Sickle Cell Disease: No Other Problems Hospitalization: Yes (ABOUT 2 DAYS FOR THE GALLBLADDER REMOVAL) Down Syndrome: No Developmental Delay: No Shingles: No Falls: No Blood Transfusions: No Blood Transfusion Reaction: No Anesthesia Reactions: No Organ Transplant: No Chemotherapy: No Radiation Therapy: No Hyperbaric Therapy: No MRSA: No VRSA: No Vancomycin-Resistant Enterococci: No Human Immunodeficiency Virus (HIV): No Chicken Pox: Yes (ABOUT AGE 5) Measles: No Mumps: No Rubella (Zimbabwean Measles): No Pertussis: No Clostridium Difficile: No Cervical Cancer: No Lung Cancer: No Ovarian Cancer: No Surgical History Hysterectomy: No
== END 2024-07-23 14:24 | disposition home or self-care (01) ==
LOC: HODSRG 13:58
PROVIDERS: PCP Family Medicine; Referring Provider Family Medicine; Supervising Provider Surgery; Visit Provider Surgery
DX: K35.32 Acute appendicitis with perforation, localized peritonitis, and gangrene, without abscess (principal)
CPT/HCPCS: 99213; G0463

== ENCOUNTER 2024-08-27 13:32 | Outpatient (AMB) | payer MEDICAID, SELFPAY ==
[2024-08-27 13:42] VITALS: BP 115/84; PULSE 76; RESP 19; TEMP 36.5; O2SAT 87; BMI 35.8
--- NOTE | 2024-08-27 13:42 | PD.GSCLVISIT ---
Vital Signs - [facility] 08/27/24 13:42 Height 1.6 m Height Method Stated Weight 91.739 kg Weight Measurement Method Standing Scale BMI 35.8 BP 115/84 Blood Pressure Source Automatic Cuff Blood Pressure Location Left Upper Arm Position Sitting Respiration 19 Pulse 76 Pulse Source Monitor Temp 97.7 F Temp Source Temporal Artery Scan Pulse Oximetry (%) 87 L Oxygen Delivery Method Room Air Med/Allergies Allergies & Medications Allergies No Known Allergies Allergy (Verified 08/27/24 13:43) Medication Reconciliation ibuprofen 800 mg tablet 800 mg PO TID PRN fever or pain #30 tabs 08/02/17 [Rx Confirmed 08/27/24] MA Intake Visit Data Collection New Patient or Established: Established Patient (seen at [facility] within 3 years) Seen by Clinical Staff ONLY (RN/MA): No Reason for Visit:: FOLLOW UP ABD PAIN Pain Present Currently: No PCP or OBGYN visit in last 3 months: Yes Smoking Status Smoking Status: Never smoker Immunization / Flu Flu Vaccine in the Last 12 Months: No Flu Vaccine Exclusion Criteria: No Exclusion Criteria Past Medical History Past Medical History NEUROLOGIC: Negative Neurological Disorders CARDIAC: Negative Cardiac Disorders or Congestive Heart Failure RESPIRATORY: Negative Chronic Obstructive Pulmonary Disease (COPD) or Asthma GASTROINTESTINAL: Negative Gastrointestinal Disorders, Hepatitis or Colorectal Cancer GENITOURINARY: Negative Genitourinary Disorders, Renal Disease or Prostate Cancer REPRODUCTIVE: Positive Previous Pregnancies; Negative Breast Cancer, Endometriosis, Genital Herpes, Gonorrhea, Pelvic Inflammatory Disease, Syphilis, Testicular Cancer or Uterine Prolapse MUSCULOSKELETAL: Negative Bone Cancer ENDOCRINE: Negative Endocrine Disorders, Diabetes Mellitus Type 1 or Diabetes Mellitus Type 2 HEMATOLOGIC: Negative Blood Disorders or Sickle Cell Disease OTHER HISTORY: Positive Hospitalization (ABOUT 2 DAYS FOR THE GALLBLADDER REMOVAL) and Chicken Pox (ABOUT AGE 5); Negative Down Syndrome, Developmental Delay, Shingles, Falls, Blood Transfusions, Blood Transfusion Reaction, Anesthesia Reactions, Organ Transplant, Chemotherapy, Radiation Therapy, Hyperbaric Therapy, MRSA, VRSA, Vancomycin-Resistant Enterococci, Human Immunodeficiency Virus (HIV), Measles, Mumps, Rubella (Citizen Of [place] Measles), Pertussis, Clostridium Difficile, Breast Cancer, Cervical Cancer, Colorectal Cancer, Lung Cancer, Ovarian Cancer, Prostate Cancer or Testicular Cancer Family History FAMILY HISTORY: Negative Family Psychiatric Problems, Family Respiratory Disorders, Family Cardiac Disorders, Family Gastrointestinal Problems, Family Cancer, Family Surgery or Family Anesthesia Reaction Surgical History SURGICAL: Negative Cardiac Surgery, Endocrine Surgery, Ear Surgery, Abdominal Surgery, Nephrectomy, Joint Replacement, Neurologic Surgery, Mastectomy, Lumpectomy, Hysterectomy, Tubal Ligation, Section or Organ Transplant Social History SMOKING STATUS: Smoking status: Never smoker SECOND HAND EXPOSURE: second hand exposure: No ALCOHOL: Alcohol Intake: Current ALCOHOL FREQUENCY: Alcohol Intake Frequency: holidays/special occasions only HOUSING: Housing: Apartment LIVES WITH: Lives With: Family HPI HPI Narrative 39F who presented with perforated appendicitis 05/21/24 treated medically here for planned follow up. Pt states she feels well with no current pain, no nausea, she is tolerating diet and having regular bowel function. Her abdominal CT is scheduled for two weeks from now ROS Review of Systems Systems Reviewed: All systems reviewed, normal except as documented Objective/Exam General General Appearance: alert, cooperative and well groomed Resp Respiratory exam: Absent respiratory distress Assessment & Plan Diagnosis / Problem List (1) Acute appendicitis with rupture: Status: Acute Assessment & Plan: 39F who presented with perforated appendicitis 05/21/24 treated medically here for planned follow up. We have discussed observation vs interval appendectomy and pt prefers appendectomy. As she is now 39 I also recommended colonoscopy and enumerated risks including bleeding, perforation requiring emergency surgery and/or the need to abort for safety. I again explained risks of surgery including need for conversion to open, bleeding, infection, injury to nearby structures as well as the possibility that the appendix cannot be safely removed if it is too walled off. All questions were answered and pt is agreeable to this plan Plan: Diagnostic colonoscopy SYLVIA After colonoscopy and CT will plan for interval appendectomy Office Procedures GNS Level of Care Nursing/Assessment Patient Status: Established Patient Nursing Assessment/Reassesment: Medication Reconciliation, Update PMH in EMR and Vital Signs Coordination of Care: Complex Care and Chronic Disease 1-5, Consent,records obtained, informed consent, Education Simp Pt/Fam, Results/Orders obtained and Staff clarify orders Established Patient Charge Established Patient Point Assignment: 90 Established Patient Point Charge: EP Level 3 (80-115) Patient Portal Questionaires Social History Living Situation History Housing: Apartment Tobacco History Smoking Status: Never smoker Second Hand Smoke Exposure: No Alcohol History Alcohol Intake: Current Alcohol Intake Frequency: holidays/special occasions only Review of Systems Report any current symptoms Only answer those that you have currently: Past Medical History Past Medical History Have you ever been diagnosed with any of the following: Cardiology Problems Congestive Heart Failure: No Respiratory Problems Chronic Obstructive Pulmonary Disease (COPD): No Asthma: No Stomache/Intestinal Problems Hepatitis: No Colorectal Cancer: No Genital/Urinary Problems Renal Disease: No Reproductive Problems Breast Cancer: No Endometriosis: No Genital Herpes: No Gonorrhea: No Pelvic Inflammatory Disease: No Previous Pregnancies: Yes Syphilis: No Uterine Prolapse: No Musculoskeletal Problems Bone Cancer: No Endocrine Problems Diabetes Mellitus Type 1: No Diabetes Mellitus Type 2: No Blood Problems Sickle Cell Disease: No Other Problems Hospitalization: Yes (ABOUT 2 DAYS FOR THE GALLBLADDER REMOVAL) Down Syndrome: No Developmental Delay: No Shingles: No Falls: No Blood Transfusions: No Blood Transfusion Reaction: No Anesthesia Reactions: No Organ Transplant: No Chemotherapy: No Radiation Therapy: No Hyperbaric Therapy: No MRSA: No VRSA: No Vancomycin-Resistant Enterococci: No Human Immunodeficiency Virus (HIV): No Chicken Pox: Yes (ABOUT AGE 5) Measles: No Mumps: No Rubella (Citizen [place] Measles): No Pertussis: No Clostridium Difficile: No Cervical Cancer: No Lung Cancer: No Ovarian Cancer: No Surgical History Hysterectomy: No
== END 2024-08-27 13:55 | disposition home or self-care (01) ==
LOC: HODSRG 13:32
PROVIDERS: PCP Family Medicine; Referring Provider Family Medicine; Supervising Provider Surgery; Visit Provider Surgery
DX: K35.32 Acute appendicitis with perforation, localized peritonitis, and gangrene, without abscess (principal)
CPT/HCPCS: 99213; G0463

== ENCOUNTER 2024-09-04 08:35 | Day surgery (SDC) | payer MEDICAID, SELFPAY ==
[2024-09-03 15:07] LABS: HCG Qualitative,Urine Negative
[2024-09-04] VITALS (9 sets, daily range): BP systolic 112–147; BP diastolic 69–99; PULSE 80–100; RESP 13–19; TEMP 36.2–36.7; O2SAT 94–98; BMI 35.9
[2024-09-04] MEDS: RINGERS LACTATED 1000 ML 1,000 ML 125 ML IV (09:49)
[2024-09-04] MEDS: fentaNYL CIT INJ 50 mCg/ML AMP 2ML (ASD USE ONLY) IVP (09:50)
[2024-09-04] MEDS: MIDAZOLAM INJ 1 MG/ML VIAL 2 ML (ASD USE ONLY) 2 MG IVP (09:50)
== END 2024-09-04 10:20 | disposition home or self-care (01) ==
PROVIDERS: PCP Family Medicine; Referring Provider Surgery; Visit Provider Surgery
PROC: 0DBE8ZX Excision of Large Intestine, Via Natural or Artificial Opening Endoscopic, Diagnostic (ICD-10-PCS; CPT 45380; principal; 2024-09-04 12:15)
DX: K64.8 Other hemorrhoids (principal)
CPT/HCPCS: 45378; 81025; J1200; J2250; J3010; J7120

== ENCOUNTER → 2024-09-07 | Outpatient (CLI) | payer MEDICAID, SELFPAY ==
--- NOTE | 2024-09-07 10:00 | XR_ITS ---
Examination: CT abdomen with intravenous contrast CT pelvis with intravenous contrast 2-D coronal reconstructions 2-D sagittal reconstructions Date and time of exam:September 07, 2024 1029 hours Comparison May 25, 2024 INDICATIONS: History perforated acute appendicitis with pericecal abscess May 25, 2024. CTDI: vol (mGy) 24.6 DLP: (mGycm) 893 Technique: Multiple axial sections of the abdomen and pelvis have been obtained. 64 slice high-resolution scanner used. 3 mm axial sections have been obtained, post intravenous injection 60 cc [id number] 2-D sagittal, coronal reconstructions obtained. Low dose protocols were performed. One or more of the following dose reduction techniques were used; automated exposure control, adjustment of the mA and/or KV according to patient size, use of iterative reconstruction technique. Findings: No focal liver or splenic lesions Absent gallbladder No pancreatic or adrenal mass. Aorta normal size No hydronephrosis Appendix does not appear enlarged on this study No pelvic abscess Anteverted uterus No pelvic mass Bladder intact IMPRESSION: Appendix appears normal on this study No pelvic abscess
[2024-09-07 10:16] LABS: HCG Qualitative,Urine Negative
== END | disposition home or self-care (01) ==
PROVIDERS: PCP Family Medicine; Referring Provider Radiology Diagnostic Radiology; Visit Provider Surgery
DX: K35.32 Acute appendicitis with perforation, localized peritonitis, and gangrene, without abscess (principal); Z32.00 Encounter for pregnancy test, result unknown
CPT/HCPCS: 74177; 81025; A4649; Q9967

== ENCOUNTER 2024-09-13 15:13 | Outpatient (AMB) | payer MEDICAID, SELFPAY ==
[2024-09-13 15:21] VITALS: BP 126/97; PULSE 81; RESP 18; TEMP 36.1; O2SAT 97; BMI 34.4
--- NOTE | 2024-09-13 15:21 | PD.GSCLVISIT ---
Vital Signs - [facility] 09/13/24 15:21 Height 1.6 m Height Method Stated Weight 88.082 kg Weight Measurement Method Standing Scale BMI 34.4 BP 126/97 H Blood Pressure Source Automatic Cuff Blood Pressure Location Right Upper Arm Position Sitting Respiration 18 Pulse 81 Pulse Source Monitor Temp 96.9 F Temp Source Temporal Artery Scan Pulse Oximetry (%) 97 Oxygen Delivery Method Room Air Med/Allergies Allergies & Medications Allergies latex Allergy (Verified 09/13/24 15:22) rash Medication Reconciliation loratadine 10 mg tablet (Allerclear) 10 mg PO QDAY 09/04/24 [History Confirmed 09/13/24] MA Intake Visit Data Collection New Patient or Established: Established Patient (seen at [facility] within 3 years) Seen by Clinical Staff ONLY (RN/MA): No Reason for Visit:: COLONOSCOPY FOLLOW UP Pain Present Currently: No Pain scale:: 0 Baggage Smasher Required: No PCP or OBGYN visit in last 3 months: Yes Hx Now: No Do You Feel Safe at Home: Yes Authorities Contacted: N/A Smoking Status Smoking Status: Never smoker Immunization / Flu Flu Vaccine in the Last 12 Months: No Flu Vaccine Exclusion Criteria: No Exclusion Criteria Past Medical History Past Medical History NEUROLOGIC: Negative Neurological Disorders or Seizures CARDIAC: Negative Cardiac Disorders or Congestive Heart Failure RESPIRATORY: Negative Chronic Obstructive Pulmonary Disease (COPD) or Asthma GASTROINTESTINAL: Positive Gastrointestinal Disorders (CONSTIPATION); Negative Hepatitis or Colorectal Cancer GENITOURINARY: Negative Genitourinary Disorders, Renal Disease or Prostate Cancer REPRODUCTIVE: Positive Previous Pregnancies; Negative Breast Cancer, Endometriosis, Genital Herpes, Gonorrhea, Pelvic Inflammatory Disease, Syphilis, Testicular Cancer or Uterine Prolapse MUSCULOSKELETAL: Negative Bone Cancer ENDOCRINE: Negative Endocrine Disorders, Diabetes Mellitus Type 1 or Diabetes Mellitus Type 2 HEMATOLOGIC: Negative Blood Disorders or Sickle Cell Disease OTHER HISTORY: Positive Chicken Pox (ABOUT AGE 5); Negative Hospitalization, Down Syndrome, Developmental Delay, Shingles, Falls, Blood Transfusions, Blood Transfusion Reaction, Anesthesia Reactions, Organ Transplant, Chemotherapy, Radiation Therapy, Hyperbaric Therapy, MRSA, VRSA, Vancomycin-Resistant Enterococci, Human Immunodeficiency Virus (HIV), Measles, Mumps, Rubella ([place] Measles), Pertussis, Clostridium Difficile, Breast Cancer, Cervical Cancer, Colorectal Cancer, Lung Cancer, Ovarian Cancer, Prostate Cancer or Testicular Cancer Family History FAMILY HISTORY: Negative Family Psychiatric Problems, Family Respiratory Disorders, Family Cardiac Disorders, Family Gastrointestinal Problems, Family Cancer, Family Surgery or Family Anesthesia Reaction Surgical History SURGICAL: Negative Cardiac Surgery, Endocrine Surgery, Ear Surgery, Abdominal Surgery, Nephrectomy, Joint Replacement, Neurologic Surgery, Mastectomy, Lumpectomy, Hysterectomy, Tubal Ligation, Section or Organ Transplant Social History SMOKING STATUS: Smoking status: Never smoker SECOND HAND EXPOSURE: second hand exposure: No ALCOHOL: Alcohol Intake: Never ALCOHOL FREQUENCY: Alcohol Intake Frequency: holidays/special occasions only HOUSING: Housing: House LIVES WITH: Lives With: Family Travel Risk Travel Hx Recent Travel: No HPI HPI Narrative 39F with perforated appendicitis treated medically May 2024, now s/p colonoscopy which was normal aside from hemorrhoids. Pt reports feeling well overall with no pains, she underwent repeat CT last week which was normal including the appendix ROS Review of Systems Systems Reviewed: All systems reviewed, normal except as documented Objective/Exam General General Appearance: alert, cooperative and well groomed Resp Respiratory exam: Absent respiratory distress Results Colonoscopy report reviewed CT AP images and report reviewed Assessment & Plan Diagnosis / Problem List (1) Acute appendicitis with rupture: Status: Acute Assessment & Plan: 39F treated medically for perforated appendicitis in May 2024, s/p diagnostic colonoscopy which was negative and CT AP which showed a normal appendix and no acute findings. We have discussed at length the options of watchful waiting vs interval appendectomy, and pt understands that appendectomy is not mandatory however given her length of hospital stay and the pain she continued to feel after discharge pt is inclined to proceed with surgery. I enumerated risks of bleeding, infection, need for conversion to open and injury to nearby structures. All questions were answered and pt is agreeable to proceeding Plan: Laparoscopic appendectomy, possible open Wed Sep 6 Office Procedures GNS Level of Care Nursing/Assessment Patient Status: Established Patient Nursing Assessment/Reassesment: Medication Reconciliation, Update PMH in EMR and Vital Signs Coordination of Care: Complex Care and Chronic Disease 1-5, Education Complex Pt/Fam, Consent,records obtained, informed consent, Results/Orders obtained and Staff clarify orders Established Patient Charge Established Patient Point Assignment: 95 Established Patient Point Charge: EP Level 3 (80-115) Patient Portal Questionaires Social History Living Situation History Housing: House Tobacco History Smoking Status: Never smoker Second Hand Smoke Exposure: No Alcohol History Alcohol Intake: Never Alcohol Intake Frequency: holidays/special occasions only Domestic Abuse History Do You Feel Safe at Home: Yes Review of Systems Report any current symptoms Only answer those that you have currently: Past Medical History Past Medical History Have you ever been diagnosed with any of the following: Neurological Problems Seizures: No Cardiology Problems Congestive Heart Failure: No Respiratory Problems Chronic Obstructive Pulmonary Disease (COPD): No Asthma: No Stomache/Intestinal Problems Hepatitis: No Colorectal Cancer: No Genital/Urinary Problems Renal Disease: No Reproductive Problems Breast Cancer: No Endometriosis: No Genital Herpes: No Gonorrhea: No Pelvic Inflammatory Disease: No Previous Pregnancies: Yes Syphilis: No Uterine Prolapse: No Musculoskeletal Problems Bone Cancer: No Endocrine Problems Diabetes Mellitus Type 1: No Diabetes Mellitus Type 2: No Blood Problems Sickle Cell Disease: No Other Problems Hospitalization: No Down Syndrome: No Developmental Delay: No Shingles: No Falls: No Blood Transfusions: No Blood Transfusion Reaction: No Anesthesia Reactions: No Organ Transplant: No Chemotherapy: No Radiation Therapy: No Hyperbaric Therapy: No MRSA: No VRSA: No Vancomycin-Resistant Enterococci: No Human Immunodeficiency Virus (HIV): No Chicken Pox: Yes (ABOUT AGE 5) Measles: No Mumps: No Rubella ([place] Measles): No Pertussis: No Clostridium Difficile: No Cervical Cancer: No Lung Cancer: No Ovarian Cancer: No Surgical History Hysterectomy: No
== END 2024-09-13 15:53 | disposition home or self-care (01) ==
LOC: HODSRG 15:13
PROVIDERS: Supervising Provider Surgery; Visit Provider Surgery
DX: K35.32 Acute appendicitis with perforation, localized peritonitis, and gangrene, without abscess (principal); K64.9 Unspecified hemorrhoids
CPT/HCPCS: 99213; G0463

== ENCOUNTER 2024-09-26 06:25 | Day surgery (SDC) | payer MEDICAID, SELFPAY ==
[2024-09-25 10:11] VITALS: BMI 35.6
[2024-09-25 11:49] LABS: Basophils # (Auto) 0.0 Thou/mm3 (0.0-0.2); Basophils % (Auto) 1 % (0-2.5); Eosinophils # (Auto) 0.1 Thou/mm3 (0.0-0.5); Eosinophils % (Auto) 3 % (0-10); Hematocrit 37.9 % (36.0-46.0); Hemoglobin 11.8 g/dL (12.0-16.0); Immature Granulocytes Auto 0.01 Thou/mm3 (0.00-0.00); Lymphocytes # (Auto) 1.4 Thou/mm3 (1.0-4.8); Lymphocytes % (Auto) 30 % (10-50); Mean Corpuscular HGB Conc 31.1 g/dl (31.0-37.0); Mean Corpuscular Hemoglobin 25.8 pg (25.0-35.0); Mean Corpuscular Volume 83 fL (80-100); Monocytes # (Auto) 0.4 Thou/mm3 (0.0-0.8); Monocytes % (Auto) 8 % (0-12); Neutrophils # (Auto) 2.9 Thou/mm3 (1.8-7.7); Neutrophils % (Auto) 59 % (37-80); Nucleated Red Blood Cell # 0.00 Thou/mm3 (0.00-0.00); Nucleated Red Blood Cell % 0 /100 WBC (0); Platelet Count 220 Thou/mm3 (140-440); RDW Standard Deviation 42.7 fL (36.4-46.3); Red Blood Count 4.58 Miln/mm3 (4.00-5.20); White Blood Count 4.9 Thou/mm3 (3.6-11.0)
[2024-09-25 11:56] LABS: INR 1.0 (0.9-1.3); Partial Thromboplastin Time 26.2 Seconds (22.0-36.0); Prothrombin Time 10.9 Seconds (9.0-12.2)
[2024-09-25 11:57] LABS: Anion Gap 9 (7-16); BUN/Creatinine Ratio 16 Ratio (12-20); Blood Urea Nitrogen 13 mg/dL (9-23); Calcium 9.3 mg/dL (8.3-10.6); Carbon Dioxide 26.4 mMol/L (20.0-31.0); Chloride 105 mMol/L (98-107); Creatinine (Component) 0.8 mg/dL (0.6-1.3); Estimated Creatinine Clearance 100.2 mL/min (>60); Glucose 114 mg/dL (74-106); Osmolality,Calculated 280 (275-295); Potassium 4.3 mMol/L (3.4-5.1); Sodium 140 mMol/L (136-145); eGFR > 60 See Note
[2024-09-25 12:01] LABS: HCG,Qualitative Serum Negative
[2024-09-26] VITALS (10 sets, daily range): BP systolic 111–141; BP diastolic 63–90; PULSE 83–108; RESP 12–20; TEMP 36.4–36.9; O2SAT 95–98; BMI 35.4
[2024-09-26] MEDS: RINGERS LACTATED 1000 ML 1,000 ML 20 ML IV (06:55)
--- NOTE | 2024-09-26 09:46 | PD.SUROPNT ---
Date of Procedure 09/26/24 Pre Op Diagnosis History of perforated appendicitis Post Op Diagnosis Same Procedure Laparoscopic appendectomy Findings Normal-appearing appendix Procedure Description After multiple discussions of risks and benefits, patient preferred to proceed with interval appendectomy. She was placed under general anesthesia and received preoperative antibiotics. Patient was prepped and draped in usual sterile fashion. After timeout an infraumbilical incision was made with a #11 blade and the skin was elevated with towel clamps. A Veress needle was placed through the incision and proper positioning was confirmed with the drop test. The abdomen was insufflated to 15 mmHg at which point the Veress needle was exchanged for a 5 mm camera using a Visiport technique. There were no signs of injury from the point of entry. 2 additional ports were placed under direct vision, one 5 mm at the suprapubic region one 5 mm at the left lower quadrant. The infraumbilical port was upsized to a 12 mm also under direct vision. Patient was placed in Trendelenburg with left side down. The appendix was identified by tracing the tinea of the colon and was normal-appearing with no active inflammation. A window was made between the base of the appendix and the mesoappendix using blunt dissection, and the base of the appendix was stapled using a 45 mm blue load stapler. The mesoappendix was transected with the harmonic scalpel. The area was gently irrigated and there were no signs of active bleeding. The pelvis was also gently suctioned and irrigated of any remaining fluid. The specimen was removed in an Endo Catch bag via the infraumbilical port and the infraumbilical fascia was closed with a 0 Vicryl suture using a Antolin-Jose Manuel. Incisions were irrigated and infiltrated with half percent Marcaine for a total of 30 cc. Incisions were closed with 4 Monocryl and reinforced with Dermabond. Patient was extubated and brought to PACU in stable condition Pathology / specimen Other (Appendix) Estimated Blood Loss 20 Surgeon Izzy Hughes MD Surgical Staff Operation Date: 09/26/24 08:45 Case Staff Anesthesiologist: Luis Brasher RN First Assistant: Mariely Mccoy
--- NOTE | 2024-09-26 09:49 | ESDS_ITS ---
Planned Discharge Date 09/26/24 DS: Providers Provider Primary care physician: Cuauhtemoc Starr MD Attending Provider on Admission: Izzy Hughes MD Attending Provider on DC: Izzy Hughes MD Discharging Provider: Izzy Hughes MD Diagnosis Discharge Diagnosis (1) History of appendicitis: Status: Acute Problem List Completed Was Problem List Reviewed/Reconciled?: Yes Exam Vital Signs Temp Pulse Resp BP Pulse Ox 97.6 F 86 12 115/78 98 09/26/24 06:55 09/26/24 06:55 09/26/24 06:55 09/26/24 06:55 09/26/24 06:55 Discharge Plan Plan Patient Disposition: HOME (Self Care) Prescriptions/Referrals Prescriptions/Med Rec: New oxycodone-acetaminophen [Percocet] 5-325 mg tablet 1 tab PO Q4H MDD 6 tabs PRN (Reason: pain) Qty: 10 0RF Rx Instructions: Take 1 tablet as needed every 4-6 hours for moderate to severe pain Referrals: Cuauhtemoc Starr MD [Primary Care Provider] - Izzy Hughes MD [Physician] - (You will receive a phone call to confirm a follow-up appointment with me in 2 weeks) Patient/Caregiver Discharge Instructions Other Discharge Activity Instructions:: You may resume showering in 2 days, on 09/28 Avoid bathing or swimming for 2 weeks Avoid lifting objects greater than 10 pounds for 6 weeks Your incisions have skin glue on them which will fall off on its own and does not need to be replaced Your stitches will not need to be removed During the surgery we fill your abdomen with air in order to see the structures. Some of this air tends to linger and causes pain referred to the shoulder as well as pain with deep breaths. This will get better with time. Being out of bed and walking will help the air to absorb faster If you develop pain not controlled by medications, fever, nausea/vomiting or drainage from incisions please seek care in ER Education Materials: Appendectomy Laparoscopic Dc, Preventing Surgical Site Infections Print Language: Trinidadian Stand Alone Forms: Shae Award Info., Patient Portal Info Letter Discharge Order Discharge Orders: Discharge (Routine); Ordered 09/26/24 Ordered By: Izzy Hughes Results Results: Laboratory Laboratory results: results reviewed Results: Imaging CT scan - abdomen: report reviewed and image reviewed PROCEDURES: Procedure Date 09/26/24 Procedures Laparoscopic appendectomy
--- NOTE | 2024-09-26 09:58 | SUR.PHASEI ---
0958 Patient arrived to recovery resting comfortably in [facility], sleeping and able to arouse with verbal prompting then drifts back to sleep, on oxygen 10L via oxy mask, breathing unlabored, vital signs stable, denies pain, dressing intact to lower abdomen; dermabond, no bleeding noted, report received from Ruthie CHRISTINA and Dr. Brasher.
[2024-09-26] MEDS: fentaNYL CIT INJ 50 mCg/ML AMP 2ML 25 MCG IVP ×5 (10:23→11:00)
--- NOTE | 2024-09-26 11:41 | SUR.PHASEII ---
1141 Patient meets discharge criteria from recovery, awake and alert, breathing unlabored, vital sign stable, drinking fluids; tolerating well, denies nausea, dressing intact; no bleeding noted, patient assisted with dressing into her clothing by her mother, discharge instructions given to patient and patients mother with the assistance of the hospital change room attendant Rosy, mother signed discharge instructions. Patient given all her belongings prior to discharge, transported via wheelchair and left in a private vehicle.
== END 2024-09-26 11:41 | disposition home or self-care (01) ==
PROVIDERS: Anesthesiology; PCP Family Medicine; Referring Provider Surgery; Visit Provider Surgery
PROC: 0DTJ4ZZ Resection of Appendix, Percutaneous Endoscopic Approach (ICD-10-PCS; CPT 44970; principal; 2024-09-26 08:45)
DX: K36 Other appendicitis (principal)
CPT/HCPCS: 44970; 36415; 80048; 84703; 85025; 85610; 85730; A4217; A4649; J0131; J0694; J1100; J1171; J2250; J2405; J2704; J3010; J3490; J7120

== ENCOUNTER 2024-10-08 11:04 | Outpatient (AMB) | payer MEDICAID, SELFPAY ==
--- NOTE | 2024-10-08 11:10 | PD.GSCLVISIT ---
Vital Signs - [facility] 10/08/24 11:13 Height 1.6 m Height Method Measured Weight 88.252 kg Weight Measurement Method Standing Scale BMI 34.4 BP 114/75 Blood Pressure Source Automatic Cuff Blood Pressure Location Left Upper Arm Position Sitting Respiration 18 Pulse 78 Pulse Source Monitor Temp 97.3 F Temp Source Temporal Artery Scan Pulse Oximetry (%) 95 Oxygen Delivery Method Room Air Med/Allergies Allergies & Medications Allergies latex Allergy (Verified 10/08/24 11:14) rash Medication Reconciliation oxycodone-acetaminophen 5 mg-325 mg tablet (Percocet) 1 tab PO Q4H PRN pain #10 tabs 09/26/24 [Rx Confirmed 10/08/24] docusate sodium 100 mg capsule (Colace) 100 mg PO QDAY PRN constipation #30 caps 10/01/24 [Rx Confirmed 10/08/24] oxycodone-acetaminophen 5 mg-325 mg tablet (Percocet) 1 tab PO Q4H PRN pain #30 tabs 10/01/24 [Rx Confirmed 10/08/24] MA Intake Visit Data Collection New Patient or Established: Established Patient (seen at [facility] within 3 years) Seen by Clinical Staff ONLY (RN/MA): No Reason for Visit:: F/U APPENDICITIS Pain Present Currently: No Pain Scale Used: Mcmanus-Pulido/Numerical Imaging Specialist Required: No PCP or OBGYN visit in last 3 months: Yes Hx Now: No Do You Feel Safe at Home: Yes Authorities Contacted: N/A Smoking Status Smoking Status: Never smoker Immunization / Flu Flu Vaccine in the Last 12 Months: No Flu Vaccine Exclusion Criteria: Refused by Patient Past Medical History Past Medical History NEUROLOGIC: Negative Neurological Disorders or Seizures CARDIAC: Negative Cardiac Disorders or Congestive Heart Failure RESPIRATORY: Negative Chronic Obstructive Pulmonary Disease (COPD) or Asthma GASTROINTESTINAL: Positive Gastrointestinal Disorders and Obesity; Negative Hepatitis or Colorectal Cancer GENITOURINARY: Negative Genitourinary Disorders, Renal Disease or Prostate Cancer REPRODUCTIVE: Positive Previous Pregnancies; Negative Breast Cancer, Endometriosis, Genital Herpes, Gonorrhea, Pelvic Inflammatory Disease, Syphilis, Testicular Cancer or Uterine Prolapse MUSCULOSKELETAL: Negative Bone Cancer ENDOCRINE: Negative Endocrine Disorders, Diabetes Mellitus Type 1 or Diabetes Mellitus Type 2 HEMATOLOGIC: Negative Blood Disorders or Sickle Cell Disease OTHER HISTORY: Positive Chicken Pox; Negative Hospitalization, Down Syndrome, Developmental Delay, Shingles, Falls, Blood Transfusions, Blood Transfusion Reaction, Anesthesia Reactions, Organ Transplant, Chemotherapy, Radiation Therapy, Hyperbaric Therapy, MRSA, VRSA, Vancomycin-Resistant Enterococci, Human Immunodeficiency Virus (HIV), Measles, Mumps, Rubella (Bulgarian Measles), Pertussis, Clostridium Difficile, Cancer, Breast Cancer, Cervical Cancer, Colorectal Cancer, Lung Cancer, Ovarian Cancer, Prostate Cancer or Testicular Cancer Family History FAMILY HISTORY: Positive Family Surgery; Negative Family Psychiatric Problems, Family Respiratory Disorders, Family Cardiac Disorders, Family Gastrointestinal Problems, Family Cancer or Family Anesthesia Reaction Surgical History SURGICAL: Negative Cardiac Surgery, Endocrine Surgery, Ear Surgery, Abdominal Surgery, Nephrectomy, Joint Replacement, Neurologic Surgery, Mastectomy, Lumpectomy, Hysterectomy, Tubal Ligation, Section or Organ Transplant Social History SMOKING STATUS: Smoking status: Never smoker SECOND HAND EXPOSURE: second hand exposure: No ALCOHOL: Alcohol Intake: Never ALCOHOL FREQUENCY: Alcohol Intake Frequency: holidays/special occasions only HOUSING: Housing: Apartment LIVES WITH: Lives With: Family HPI HPI Narrative 39F treated medically for perforated appendicitis in May 2024, s/p diagnostic colonoscopy which was negative now s/p interval appendectomy 09/26 here for planned follow-up. Patient reports she had a lot of pain the first week or so, she needed additional Percocet however for the past few days she has been feeling better not needing any medications. She is having some constipation and does feel like Colace has not been helpful, has not yet tried any other remedies. Otherwise she is feeling well, not having any fever, eating well and having regular bladder function ROS Review of Systems Systems Reviewed: All systems reviewed, normal except as documented Objective/Exam General General Appearance: alert, cooperative and well groomed Resp Respiratory exam: Absent respiratory distress Abdominal Abdominal exam: Present soft and incision (Clean dry intact, no erythema, no fluctuance or tenderness); Absent distention or tenderness Results Pathology of appendix reviewed Assessment & Plan Diagnosis / Problem List (1) History of appendicitis: Status: Acute Assessment & Plan: 39F treated medically for perforated appendicitis in May 2024, now s/p interval appendectomy 09/26, recovering well overall Plan: Avoid lifting objects greater than 10 pounds for 6 weeks Follow-up as needed Office Procedures GNS Level of Care Nursing/Assessment Patient Status: Established Patient Nursing Assessment/Reassesment: Medication Reconciliation, Update PMH in EMR and Vital Signs Coordination of Care: Complex Care and Chronic Disease 1-5, Consent,records obtained, informed consent, Education Simp Pt/Fam, Results/Orders obtained and Staff clarify orders Established Patient Charge Established Patient Point Assignment: 90 Established Patient Point Charge: Level 3 (80-115) Patient Portal Questionaires Social History Living Situation History Housing: Apartment Tobacco History Smoking Status: Never smoker Second Hand Smoke Exposure: No Alcohol History Alcohol Intake: Never Alcohol Intake Frequency: holidays/special occasions only Domestic Abuse History Do You Feel Safe at Home: Yes Review of Systems Report any current symptoms Only answer those that you have currently: Past Medical History Past Medical History Have you ever been diagnosed with any of the following: Neurological Problems Seizures: No Cardiology Problems Congestive Heart Failure: No Respiratory Problems Chronic Obstructive Pulmonary Disease (COPD): No Asthma: No Stomache/Intestinal Problems Hepatitis: No Colorectal Cancer: No Obesity: Yes Genital/Urinary Problems Renal Disease: No Reproductive Problems Breast Cancer: No Endometriosis: No Genital Herpes: No Gonorrhea: No Pelvic Inflammatory Disease: No Previous Pregnancies: Yes Syphilis: No Uterine Prolapse: No Musculoskeletal Problems Bone Cancer: No Endocrine Problems Diabetes Mellitus Type 1: No Diabetes Mellitus Type 2: No Blood Problems Sickle Cell Disease: No Other Problems Hospitalization: No Down Syndrome: No Developmental Delay: No Shingles: No Falls: No Blood Transfusions: No Blood Transfusion Reaction: No Anesthesia Reactions: No Organ Transplant: No Chemotherapy: No Radiation Therapy: No Hyperbaric Therapy: No MRSA: No VRSA: No Vancomycin-Resistant Enterococci: No Human Immunodeficiency Virus (HIV): No Chicken Pox: Yes Measles: No Mumps: No Rubella (Bulgarian Measles): No Pertussis: No Clostridium Difficile: No Cancer: No Cervical Cancer: No Lung Cancer: No Ovarian Cancer: No Surgical History Hysterectomy: No
[2024-10-08 11:13] VITALS: BP 114/75; PULSE 78; RESP 18; TEMP 36.3; O2SAT 95; BMI 34.4
== END 2024-10-08 11:32 | disposition home or self-care (01) ==
LOC: HODSRG 11:04
PROVIDERS: PCP Family Medicine; Referring Provider Family Medicine; Supervising Provider Surgery; Visit Provider Surgery
DX: Z48.815 Encounter for surgical aftercare following surgery on the digestive system (principal)
CPT/HCPCS: 99213; G0463